=== PATIENT | female | born 1945 | race Caucasian/White ===

== ENCOUNTER 2016-09-08 17:54 | Emergency (ER) | payer MEDICARE, BC | END 2016-09-08 21:50 | disposition home or self-care (01) | LOC: D.ER 17:54 | DX: S39.012A Strain of muscle, fascia and tendon of lower back, initial encounter (principal); W01.0XXA Fall on same level from slipping, tripping and stumbling without subsequent striking against object, initial encounter; R07.81 Pleurodynia ==

== ENCOUNTER 2019-02-20 21:08 | Inpatient (IN) | payer MEDICARE, BC ==
--- NOTE | 2019-02-20 21:36 | NUR ---
PT IN PER EMS WITH C/O NOT FEELING RIGHT, DENIES PAIN AT THIS TIME, STATES SHE DOSEN'T FEEL CLEAR HEADED. STATES SHE HAS SOME CONSTIPATION X 2 DAYS. GLOBAL LOGISTICS ANALYST FIRM AND EQUAL, ANSWERS QUESTIONS APPROPRIATELY.
[2019-02-20 21:58] VITALS: BP 176/72
[2019-02-20 21:58] LABS: BASOPHILS 0.2 % (0-2); EOSINOPHILS 1.7 % (0-7); HEMOGLOBIN 12.9 g/dL (12-16); LYMPHOCYTES 38.6 % (15-50); MCH 33.2 pg (26.0-34.0); MCHC 34.9 g/dL (31.0-37.0); MCV 95.1 fL (80.0-100.0); MEAN PLATELET VOLUME 10.2 fL (7.4-10.4); MONOCYTES 11.3 % (2-11); NEUTROPHILS 47.2 % (40-80); PLATELET COUNT 148 10x3/uL (130-400); RBC 3.89 10x6/uL (4.00-5.40); RDW 13.5 % (11.5-14.5); WBC 5.9 10x3/uL (4.8-10.8)
[2019-02-20 22:08] LABS: ALBUMIN 3.6 g/dL (3.4-5.0); ANION GAP 11.7 mmol/L (8-16); BILIRUBIN - TOTAL 0.64 mg/dL (0.2-1.3); CALCIUM 9.1 mg/dL (8.5-10.1); CARBON DIOXIDE 29.2 mmol/L (21.0-32.0); CREATININE - SERUM 1.1 mg/dL (0.6-1.3); POTASSIUM - SERUM 3.9 mmol/L (3.5-5.1); PROTEIN - SERUM 6.3 g/dL (6.4-8.2)
[2019-02-20 22:16] VITALS: BP 184/69
--- NOTE | 2019-02-20 22:16 | NUR ---
pt from ct via wheelchair, family at bedside.
[2019-02-20 22:24] LABS: APPEARANCE CLEAR (CLEAR); BILIRUBIN NEGATIVE (NEGATIVE); COLOR YELLOW (YELLOW); GLUCOSE NEGATIVE (NEGATIVE); KETONE NEGATIVE (NEGATIVE); NITRITE NEGATIVE (NEGATIVE); PROTEIN NEGATIVE (NEGATIVE); SPECIFIC GRAVITY 1.015 (1.005-1.020); UROBILINOGEN NORMAL (NORMAL)
[2019-02-20 23:19] LABS: UDS - AMPHET NEGATIVE QUAL (NEGATIVE); UDS - BARB NEGATIVE QUAL (NEGATIVE); UDS - BENZO NEGATIVE QUAL (NEGATIVE); UDS - COCAINE NEGATIVE QUAL (NEGATIVE); UDS - OPIATE NEGATIVE QUAL (NEGATIVE); UDS - PCP NEGATIVE QUAL (NEGATIVE); UDS - THC NEGATIVE QUAL (NEGATIVE)
[2019-02-20 23:46] VITALS: BP 168/79
[2019-02-21] MEDS ORDERED: ALENDRONATE SOD40 MG PO (00:59)
[2019-02-21] MEDS ORDERED: METHOTREXATE2.5 MG PO (00:59)
[2019-02-21] MEDS ORDERED: FOLIC ACID1 MG PO (01:00)
[2019-02-21] MEDS ORDERED: NEURONTIN 300300 MG PO (01:00)
[2019-02-21 01:03] VITALS: BP 156/87; BMI 22.0
[2019-02-21 01:37] LABS: CREATINE KINASE 74 UL (21-215); TROPONIN-I < 0.017 ng/mL (0.000-0.060)
[2019-02-21 04:00] VITALS: BP 176/80
[2019-02-21 04:33] LABS: BASOPHILS 0.4 % (0-2); HEMATOCRIT 34.6 % (36.0-48.0); HEMOGLOBIN 11.9 g/dL (12-16); IMMATURE GRANULOCYTES 0.7 % (0-5); LYMPHOCYTES 41.7 % (15-50); MCH 32.7 pg (26.0-34.0); MCHC 34.4 g/dL (31.0-37.0); MCV 95.1 fL (80.0-100.0); MONOCYTES 13.3 % (2-11); NEUTROPHILS 41.9 % (40-80); PLATELET COUNT 139 10x3/uL (130-400); RBC 3.64 10x6/uL (4.00-5.40); RDW 13.5 % (11.5-14.5); WBC 5.5 10x3/uL (4.8-10.8)
[2019-02-21 05:05] LABS: ALBUMIN 3.2 g/dL (3.4-5.0); ALKALINE PHOSPHATASE 98 U/L (46-116); ALT (SGPT) 29 U/L (10-68); BILIRUBIN - TOTAL 0.74 mg/dL (0.2-1.3); CALC OSMOLALITY 286 mosm/kg (275-300); CALCIUM 8.6 mg/dL (8.5-10.1); CARBON DIOXIDE 29.7 mmol/L (21.0-32.0); CHLORIDE - SERUM 107 mmol/L (98-107); CKMB 0.8 U/L (0.0-3.6); CREATINE KINASE 61 UL (21-215); GLUCOSE 85 mg/dL (74-106); MAGNESIUM - SERUM 1.8 mg/dL (1.8-2.4); PHOSPHOROUS 3.5 mg/dL (2.5-4.9); POTASSIUM - SERUM 3.5 mmol/L (3.5-5.1); PROTEIN - SERUM 5.5 g/dL (6.4-8.2); SODIUM 143 mmol/L (136-145); TROPONIN-I < 0.017 ng/mL (0.000-0.060); UREA NITROGEN 22 mg/dL (7-18); eGFR NON AFRICAN AMERICAN 57 mL/min (90-120)
--- NOTE | 2019-02-21 07:30 | NUR ---
A/A/OX4. DENIES ANY PAIN OR DISCOMFORT AND VOICES NO REQUESTS AT PRESENT TIME. ASSESSMENT COMPLETED AND WILL CONTINUE POC. BED LOW POSITION AND CALL LIGHT IN REACH. AT BEDSIDE.
[2019-02-21 07:40] VITALS: BP 155/68
[2019-02-21 10:36] LABS: CKMB 0.7 U/L (0.0-3.6); CREATINE KINASE 57 UL (21-215)
[2019-02-21 10:37] LABS: TROPONIN-I < 0.017 ng/mL (0.000-0.060)
--- NOTE | 2019-02-21 11:46 | NUR ---
I have reviewed this patient and I concur with the Shift Assessment completed by the Licensed Practical Nurse today this shift.
[2019-02-21 12:50] VITALS: BP 143/64
[2019-02-21 13:24] VITALS: BMI 21.9
[2019-02-21 15:11] VITALS: BP 128/54
--- NOTE | 2019-02-21 18:00 | NUR ---
PT DECLINE OFFER OF SCDS DUE TO UP TO BATHROOM AND AROUND ROOM AD FRANCINE.
--- NOTE | 2019-02-21 19:50 | NUR ---
PT IN BED. SPOUSE AT BEDSIDE. PT DENIES NEEDS AT THIS TIME.
[2019-02-21 20:00] VITALS: BP 144/82
[2019-02-22] VITALS: BP 134/65
[2019-02-22 04:00] VITALS: BP 153/66
[2019-02-22 05:21] LABS: BASOPHILS 0.2 % (0-2); EOSINOPHILS 3.1 % (0-7); HEMATOCRIT 35.6 % (36.0-48.0); HEMOGLOBIN 12.2 g/dL (12-16); IMMATURE GRANULOCYTES 0.9 % (0-5); LYMPHOCYTES 39.5 % (15-50); MCH 32.9 pg (26.0-34.0); MCHC 34.3 g/dL (31.0-37.0); MEAN PLATELET VOLUME 10.5 fL (7.4-10.4); MONOCYTES 12.2 % (2-11); NEUTROPHILS 44.1 % (40-80); PLATELET COUNT 115 10x3/uL (130-400); RBC 3.71 10x6/uL (4.00-5.40); RDW 13.8 % (11.5-14.5); WBC 5.7 10x3/uL (4.8-10.8)
[2019-02-22 05:33] LABS: ANION GAP 10.8 mmol/L (8-16); CALCIUM 8.4 mg/dL (8.5-10.1); CARBON DIOXIDE 26.2 mmol/L (21.0-32.0); MAGNESIUM - SERUM 1.8 mg/dL (1.8-2.4); PHOSPHOROUS 3.1 mg/dL (2.5-4.9)
--- NOTE | 2019-02-22 07:30 | NUR ---
A/A/OX4. DENIES ANY PAIN OR DISCOMFORT AND VOICES NO REQUESTS. ASSESSMENT COMPLETED AND WILL CONTINUE POC. IV PATENT TO LEFT FOREARM WITH REDNESS OR EDEMA NOTED AT SITE. AT BEDSIDE. CALL LIGHT IN REACH.
[2019-02-22 08:37] VITALS: BP 133/56
[2019-02-22 12:08] VITALS: BP 171/66
--- NOTE | 2019-02-22 12:41 | NUR ---
I have reviewed this patient and I concur with the Shift Assessment completed by the Licensed Practical Nurse today this shift.
[2019-02-22 18:59] LABS: ERYTHROCYTE SEDIMENTATION RATE 2 mm/hr (0-30)
--- NOTE | 2019-02-22 19:48 | NUR ---
EVENING ROUNDS COMPLETED. REPORT RECEIVED. PT SITTING UP IN BED WITH EYES OPEN, RR EVEN AND UNLABORED. BED IN LOW POSITION. 70 NORMAL SINUS ON TELEMETRY. INTRODUCED SELF TO PT. PT DENIES FURTHER NEEDS AT THIS TIME. LFA INFUSING NS ORDERED. NO S/S OF DISTRESS NOTED. CALL LIGHT IN REACH. WILL CTM.
[2019-02-22 20:00] VITALS: BP 159/65
[2019-02-23] VITALS: BP 137/57
--- NOTE | 2019-02-23 03:22 | NUR ---
I have reviewed this patient and I concur with the Shift Assessment completed by the Licensed Practical Nurse today this shift.
[2019-02-23 04:00] VITALS: BP 150/69
[2019-02-23 05:33] LABS: BASOPHILS 0.4 % (0-2); EOSINOPHILS 3.6 % (0-7); HEMATOCRIT 32.6 % (36.0-48.0); IMMATURE GRANULOCYTES 0.6 % (0-5); LYMPHOCYTES 34.7 % (15-50); MCH 32.6 pg (26.0-34.0); MCHC 33.7 g/dL (31.0-37.0); MCV 96.7 fL (80.0-100.0); MEAN PLATELET VOLUME 11.1 fL (7.4-10.4); MONOCYTES 14.6 % (2-11); NEUTROPHILS 46.1 % (40-80); RBC 3.37 10x6/uL (4.00-5.40); WBC 4.8 10x3/uL (4.8-10.8)
[2019-02-23 05:39] LABS: PLATELET COUNT 102 10x3/uL (130-400)
[2019-02-23 05:50] LABS: CALCIUM 8.5 mg/dL (8.5-10.1); CARBON DIOXIDE 25.8 mmol/L (21.0-32.0); MAGNESIUM - SERUM 1.7 mg/dL (1.8-2.4); POTASSIUM - SERUM 3.8 mmol/L (3.5-5.1)
--- NOTE | 2019-02-23 06:25 | NUR ---
PT SITTING UP IN BED WITH EYES OPEN, RR EVEN AND UNLABORED. PT ANSWERING QUESTIONS APPROPRIATELY. SISTER AT BEDSIDE. NO S/S OF DISTRESS NOTED. CALL LIGHT IN REACH. WILL CTM.
--- NOTE | 2019-02-23 07:00 | NUR ---
RECEIVED REPORT. ASSUMED CARE OF PATIENT. CALL LIGHT WITHIN REACH. PATIENTS SISTER AT BEDSIDE. PATIENT IS ALERT. PATIENT IS DISORIENTED TO YEAR. GAVE ME WRONG BIRTHYEAR AND WRONG CURRENT YEAR. PATIENT ABLE TO TELL ME WHERE SHE IS, WHICH HOSPITAL, WHO THE PRESIDENT IS BUT COULD NOT GET ANY DATES CORRECT. PATIENT IS PLEASANT. NO DISTRESS.
[2019-02-23 08:13] VITALS: BP 145/63
--- NOTE | 2019-02-23 10:15 | NUR ---
ASSISTED PATIENT TO AND FROM RESTROOM. NO DISTRESS. CALL LIGHT PLACED WITHIN REACH. FAMILY AT BEDSIDE. DENIES NEEDS.
[2019-02-23 11:48] LABS: % SATURATION 52 % (15-55); IRON 105 ug/dl (35-150); TOTAL IRON BIND CAPACITY 199 ug/dl (260-445); UNSAT IRON BIND CAPACITY 94 ug/dl (150-375)
[2019-02-23 13:18] VITALS: BP 137/60
--- NOTE | 2019-02-23 14:23 | NUR ---
PATIENT OOB WITH PHYSICAL THERAPY FOR EVALUATION. NO DISTRESS. AMBULATING WELL.
[2019-02-23 15:08] LABS: EBV - EARLY ANTIGEN AB IGG <9.0 U/mL (0.0-8.9); EBV - NUCLEAR ANTIGEN AB IGG <18.0 U/mL (0.0-17.9); EBV VIRAL CAPSID AB IGM <36.0 U/mL (0.0-35.9)
--- NOTE | 2019-02-23 15:45 | NUR ---
PATIENT LEFT UNIT VIA WHEELCHAIR FOR MRI.
[2019-02-23 17:19] VITALS: BP 164/63
--- NOTE | 2019-02-23 18:34 | NUR ---
RESTING WELL IN BED WITH EYES CLOSED. FAMILY AT BEDSIDE. CALL LIGHT WITHIN REACH. NO DISTRESS. DENIES NEEDS AT THIS TIME.
[2019-02-23 20:00] VITALS: BP 150/76
--- NOTE | 2019-02-23 20:50 | NUR ---
DC'D INFILTRATED LFA IV WITH CATHATER TIP IN PLACE. ARM SWOLLEN WITH FLUID. APPLIED WARM COMPRESS. PT DENIES PAIN. RE-ESTABLISHED 20G IV TO RIGHT FOREARM. IV PATENT NS RUNNING AT 75ML/HR PER ORDER. PT RR EVEN AND UNLABORED VITALS STABLE AT THIS TIME. PT SLOW TO SPEECH RESPONSE BUT ANSWERS APPROPRIATLY. FAMILY AT BEDSIDE. BED LOW CALL LIGHT WITHIN REACH. WILL CONTINUE TO MONIITOR.
--- NOTE | 2019-02-23 23:32 | NUR ---
PT RESTING IN BED WITH EYES CLOSED. RR EVEN AND UNLABORED. FAMILY AT BEDSIDE. NO S/S OF DISTRESS AT THIS TIME. BED LOW CALL LIGHT WITHIN REACH. WILL CONTINUE TO MONITOR.
[2019-02-24] VITALS: BP 158/64
[2019-02-24 04:00] VITALS: BP 156/73
--- NOTE | 2019-02-24 05:04 | NUR ---
I have reviewed this patient and I concur with the Shift Assessment completed by the Licensed Practical Nurse today this shift.
[2019-02-24 05:29] LABS: ANION GAP 11.7 mmol/L (8-16); CALCIUM 8.5 mg/dL (8.5-10.1); CARBON DIOXIDE 26.4 mmol/L (21.0-32.0); MAGNESIUM - SERUM 1.7 mg/dL (1.8-2.4); PHOSPHOROUS 3.1 mg/dL (2.5-4.9); POTASSIUM - SERUM 4.1 mmol/L (3.5-5.1)
--- NOTE | 2019-02-24 07:00 | NUR ---
RECEIVED REPORT. ASSUMED CARE OF PATIENT. RESTING WITH EYES CLOSED. RESP EVEN AND UNLABORED. FAMILY AT BEDSIDE WITH EYES CLOSED. CALL LIGHT IN PATIETNT HAND. NO DISTRESS.
[2019-02-24 08:08] LABS: BASOPHILS 0.4 % (0-2); EOSINOPHILS 4.3 % (0-7); HEMATOCRIT 35.6 % (36.0-48.0); HEMOGLOBIN 12.3 g/dL (12-16); IMMATURE GRANULOCYTES 0.2 % (0-5); MCHC 34.6 g/dL (31.0-37.0); MCV 95.4 fL (80.0-100.0); MEAN PLATELET VOLUME 10.1 fL (7.4-10.4); MONOCYTES 9.5 % (2-11); NEUTROPHILS 57.6 % (40-80); PLATELET COUNT 109 10x3/uL (130-400); RBC 3.73 10x6/uL (4.00-5.40); RDW 13.8 % (11.5-14.5); WBC 4.6 10x3/uL (4.8-10.8)
[2019-02-24 08:51] VITALS: BP 141/77
--- NOTE | 2019-02-24 09:57 | NUR ---
20 GAUGE IV TO RIGHT FOREARM NOT ABLE TO BE FLUSHED AFTER SHOWER AT THIS TIME. 20 GAUGE IV CATHETER REMOVED FROM RIGHT FOREARM, CATHETER TIP INTACT. NO BLEEDING FROM SITE. 2X2 GAUZE APPLIED AND SECURED WITH BANDAID. 20 GAUGE IV PLACED TO RIGHT HAND AT THIS TIME X 1 STICK. GOOD BLOOD RETURN, EASY FLUSH. TOLERATED IV PLACEMENT WELL. TAPED, DATED AND SECURED. IV FLUIDS INFUSING AT THIS TIME. NO DISTRESS.
[2019-02-24 12:21] VITALS: BP 121/61
--- NOTE | 2019-02-24 14:30 | NUR ---
OOB WITH PHYSICAL THERAPY AMBULATING AROUND UNIT. TOLERATES THERAPY WELL. AMBULATES WITH MINIMAL ASSISTANCE. NO DISTRESS.
[2019-02-24 16:57] VITALS: BP 146/57
--- NOTE | 2019-02-24 18:49 | NUR ---
RESTING IN BED WITH ATTENTION TOWARD TELEVISION. CALL LIGHT WITHIN REACH. NO DISTRESS. DENIES NEEDS.
--- NOTE | 2019-02-24 19:49 | NUR ---
EVENING ROUNDS COMPLETED. REPORT RECEIVED. PT SITTING UP IN BED WITH EYES OPEN, RR EVEN AND UNLABORED. BED IN LOW POSITION. NO S/S OF DISTRESS NOTED. AT BEDSIDE. PT REQUESTED TO HAVE PIV REMOVED. STATED IT WAS A STANDARD FACILITY POLICY TO KEEP PIV IN PLACE UNTIL DISCHARGE FROM FLOOR. PT STATES UNDERSTANDING. PT DENIES FURTHER NEEDS AT THIS TIME. CALL LIGHT IN REACH. WILL CTM.
[2019-02-24 20:15] VITALS: BP 156/65
[2019-02-25] VITALS: BP 169/70
[2019-02-25 05:22] LABS: BASOPHILS 0.7 % (0-2); EOSINOPHILS 3.6 % (0-7); HEMOGLOBIN 10.8 g/dL (12-16); IMMATURE GRANULOCYTES 0.2 % (0-5); LYMPHOCYTES 26.1 % (15-50); MCH 32.2 pg (26.0-34.0); MCHC 33.8 g/dL (31.0-37.0); MCV 95.5 fL (80.0-100.0); MEAN PLATELET VOLUME 10.4 fL (7.4-10.4); MONOCYTES 12.5 % (2-11); NEUTROPHILS 56.9 % (40-80); PLATELET COUNT 110 10x3/uL (130-400); RBC 3.35 10x6/uL (4.00-5.40); RDW 13.7 % (11.5-14.5)
[2019-02-25 05:34] LABS: WBC 5.9 10x3/uL (4.8-10.8)
[2019-02-25 06:05] LABS: ANION GAP 8.5 mmol/L (8-16); CARBON DIOXIDE 29.5 mmol/L (21.0-32.0); CREATININE - SERUM 0.9 mg/dL (0.6-1.3); PHOSPHOROUS 2.6 mg/dL (2.5-4.9)
--- NOTE | 2019-02-25 06:23 | NUR ---
3.0 SERUM POTASSIUM TREATED ORDERED.
[2019-02-25 07:53] VITALS: BP 159/68
--- NOTE | 2019-02-25 09:00 | NUR ---
PT SITTING UP ON SIDE OF BED WITH FAMILY AT BEDSIDE. NO ACUTE DISTRESS NOTED. PT ASSISTED TO SHOWER FOR PERSONAL CARE. PT REQUEST IV TO RIGHT HAND BE SALINE LOC AND LEFT THEY STATE MD HAD INFORMED THEM THAT IT COULD BE SALINE LOC'D. IV SALINE LOC'D AT THIS TIME. PT AND FAMILY STATE PT IS EATING AND DRINKING ADEQUATELY AND THEY FEEL THAT FLUIDS ARE NO LONGER NEEDED. DENIES PAIN. DENIES FURTHER NEEDS AT THIS TIME. CL WITHIN REACH. ENCOURAGED TO CALL WITH NEEDS. CONTINUE POC
--- NOTE | 2019-02-25 09:50 | EC ---
PATIENT:PAMELA BOOKER DATE OF SERVICE: 02/20/19 SEX: F MEDICAL RECORD: [id number] DATE OF : 43 LOCATION:D.M2 D.210 AGE OF PATIENT: 73 ADMISSION DATE: 02/20/19 REFERRING PHYSICIAN: INTERPRETING PHYSICIAN: BHARTI ZENG MD ECHOCARDIOGRAM REPORT ECHO CHARGES 4 ECHO COMPLETE Date: 02/21/19 CLINICAL DIAGNOSIS: BRADYCARDIA HXOF CAD/HTN/PTCA ECHOCARDIOGRAPHIC MEASUREMENTS (adult normal given) AC root (d.<3.7cm) 3.0 cm LV Septum d (<1.2 cm> 1. cm Valve Excursion 1.4 cm LV Septum (systole) 1.9 cm Left Atria (s.<4.0cm> 3.9 cm LVPW d(<1.2cm) 1.7 cm RV (d.<2.3cm) 4.5 cm LVPW (sytole) 2.0 cm LV diastole(<5.6CM) 4.0 cm MV E-F(>70mm/sec) cm LV systole 2.8 cm LVOT Diameter 1.8 cm MV exc.(>10mm) cm Est.ejection fraction (50-75%) % DOPPLER: LVIT cm/sec A 71.0 cm/sec E 59.0 cm/sec LA cm/sec RVSP 37 mmHg LVOT 133 cm/sec AOP1/2T 684 m/s Asc. Ao 190 cm/sec RVOT 65 cm/sec RA cm/sec PA 163 cm/sec AV Gradient Peak 14.39mmHg AV Mean 8.46 mmHg AV Area 1.8 cm MV Gradient Peak 4.82 mmHg MV Mean 0.99 mmHg MV Area cm COMMENTS: Physical Medicine Teacher: Kallie ROME [employer] Architect: 1 Dr. Zeng TAPE# PACS Pericardial Effusion N DATE OF SERVICE: 02/21/2019 ECHOCARDIOGRAM DATE OF SERVICE: 02/21/2019 FINDINGS: 1. Left ventricular chamber size is within normal limits. Left ventricular systolic function is normal. Overall ejection fraction estimated at 60%. 2. Left atrium, right atrium, and right ventricular chamber sizes are within ECHOCARDIOGRAM REPORT [id number] PAMELA BOOKER normal limits. 3. Valvular structures have normal structure and motion. 4. Doppler interrogation reveals mild aortic insufficiency, mild mitral regurgitation, no other valvular insufficiency or stenosis. Pulmonary systolic pressure is estimated at 37 mmHg. 5. No evidence of pericardial effusion or left ventricular thrombus. TRANSINT:[id number] Voice Confirmation ID: [id number] DOCUMENT ID: [id number] BHARTI ZENG MD at 0950 CC: [id number] DICTATION DATE: 02/21/19 1259 WOOL AND PELT GRADER: 02/21/[address] [facility] [address] [place] [address]
[2019-02-25 10:10] LABS: ANA REFLEX - DIRECT Negative (Negative)
--- NOTE | 2019-02-25 11:41 | NUR ---
PT SITTING UP ON SIDE OF BED. NO ACUTE DISTRESS NOTED AT THIS TIME. DENIES NEEDS AT THIS TIME. CL WITHIN REACH. WILL CONTINUE TO MONITOR.
--- NOTE | 2019-02-25 12:10 | MORECARE ---
CASE MANAGEMENT DISCHARGE SUMMARY PATIENT: PAMELA BOOKER UNIT: [id number] ADM DATE: 02/20/19 AGE: 73 : 44 SEX: F ROOM/BED: D.2102 AUTHOR: KATHRYN COTTO PHYSICIAN: REFERRING PHYSICIAN: RANDAL ROY MD DATE OF SERVICE: 02/25/19 Discharge Plan Patient Name: PAMELA BOOKER Facility: [facility]:[place] : 1945 Planned Disposition: Home Anticipated Discharge Date: 02/25/19 Discharge Date: Expected LOS: 5 Initial Reviewer: [email or web address] Initial Review Date: 02/25/2019 Generated: 02/25/19 1:10 pm Coverage Notice Reviewer: [id number] - Rishi Borges Notice Issued Date-Time: 02/25/2019 12:00 Notice Type: IM Discharge Notice Notice Delivered To: Patient Relationship to Patient: Hyperbaric Nurse Name: Delivery Method: HAND - Hand Delivered Tracey Days: Prior Verbal Notification: Recipient Understood Notice: Yes Recipient Signature: Yes Med Rec Note Co-signed by Attending: Coverage Notice Comment: Patient Name: PAMELA BOOKER Page [id number] at 1210 All edits/amendments must be made on the electronic document DICTATION DATE: 02/25/191208 PAPETERIE TABLE ASSEMBLER: SAMY 02/25/19 120 RPT#: [id number] DC DATE: STATUS: ADM IN [facility] [address] [place] [address] END OF REPORT
--- NOTE | 2019-02-25 12:17 | MORECARE ---
CASE MANAGEMENT DISCHARGE SUMMARY PATIENT: PAMELA BOOKER UNIT: [id number] ADM DATE: 02/20/19 AGE: 73 : 44 SEX: F ROOM/BED: D.2102 AUTHOR: YADIEL,DOC PHYSICIAN: REFERRING PHYSICIAN: RANDAL ROY MD DATE OF SERVICE: 02/25/19 Discharge Plan Patient Name: PAMELA BOOKER Facility: [facility]:[place] : 1945 Planned Disposition: Home Anticipated Discharge Date: 02/25/19 Discharge Date: Expected LOS: 5 Initial Reviewer: [id number] Initial Review Date: 02/25/2019 Generated: 02/25/19 1:17 pm Comments DCP- Discharge Planning Updated by [id number]: Rishi Borges on 02/25/19 11:[address] Patient Name: PAMELA BOOKER Admission Status: ER Accout number: [id number] Admission Date: 02-20-2019 : 1945 Admission Diagnosis:ALTERED MENTAL STATUS, UNSPECIFIED Attending: RANDAL ROY Current LOS: 5 Anticipated DC Date: 02-25-2019 Planned Disposition: Home Primary Insurance: MEDICARE A & B Discharge Planning Comments: CM RECEIVED ORDER FOR INPATIENT REHAB PRESCREENING. CM MET WITH PT IN ROOM TO DISCUSS DISCHARGE PLANNING AND NEEDS. PT REPORTS LIVING AT HOME INDEPENDENTLY WITH A FRIEND. PT REPORTS HAVING ALL NEEDED MEDICAL EQUIPMENT AT HOME LEFT FROM HER MOTHER. PT HAS ROLLATOR WALKER, CANE AND BEDSIDE COMMODE TO USE IF SHE NEEDS IT. PT'S PREFERRED MEDICAL EQUIPMENT PROVIDER IS [employer]. PT HAS NO OUTSIDE SERVICES ASSISTING IN THE HOME. CM DISCUSSED AVAILABILITY OF HOME HEALTH, REHAB SERVICES AND MEDICAL EQUIPMENT. PT DENIES DISCHARGE NEEDS, STATES SHE IS DOING WELL AND CAN GO HOME AT DISCHARGE. PT REPORTS HER FRIEND OR FAMILY WILL PICK HER UP FOR DISCHARGE HOME. IMPORTANT MESSAGE FROM MEDICARE PROVIDED AND EXPLAINED. CM NOTIFIED [facility] OF INPATIENT REHAB THAT PT DECLINES REHAB SERVICES. PT DECLINES REHAB SERVICES WELL HOME HEALTH. PT PLANS TO DISCHARGE HOME WHERE SHE LIVES WITH A FRIEND. PT REPORTS HAVING SOMEONE FOR TRANSPORT HOME AT DISCHARGE. CM TO FOLLOW AND ASSIST IF NEEDED. Motion Pictures Cartoonist: Rishi Borges DCPIA - Discharge Planning Initial Assessment Updated by [id number]: Rishi Borges on 02/25/19 12:11 pm * Is the patient Alert and Oriented? Yes * How many steps to enter\exit or inside your home? NONE * PCP DR. HENSON * Pharmacy [facility] * Preadmission Environment Home with Family * ADLs Independent * Equipment Bedside Commode Cane Rolling Walker * Other Equipment WALKER WITH BRAKES AND SEAT [facility] - MEDICAL EQUIPMENT PROVIDER * List name and contact numbers for known caregivers / representatives who currently or will assist patient after discharge: BUTCH MARVIN, SISTER, * Verbal permission to speak to the caregivers and representatives has been obtained from the patient. N/A * Community resources currently utilized None * Please name any agencies selected above. NONE * Additional services required to return to the preadmission environment? No * Can the patient safely return to the preadmission environment? Yes * Has this patient been hospitalized within the prior 30 days at any hospital? No Coverage Notice Reviewer: [id number] - Rishi Borges Notice Issued Date-Time: 02/25/2019 12:00 Notice Type: IM Discharge Notice Notice Delivered To: Patient Relationship to Patient: Ammonia Solution Preparer Name: Delivery Method: HAND - Hand Delivered Tracey Days: Prior Verbal Notification: Recipient Understood Notice: Yes Recipient Signature: Yes Med Rec Note Co-signed by Attending: Coverage Notice Comment: Last DP export: 02/25/19 11:10 am Patient Name: PAMELA BOOKER Page [phone] at 1217 All edits/amendments must be made on the electronic document DICTATION DATE: 02/25/191216 CROSSING GATEMAN: SAMY 02/25/19 1217 RPT#: [id number] DC DATE: STATUS: ADM IN [facility] [address] [place] [address] END OF REPORT
[2019-02-25 12:20] VITALS: BP 154/59
[2019-02-25 17:05] VITALS: BP 152/88
[2019-02-25 20:00] VITALS: BP 140/67
--- NOTE | 2019-02-25 20:27 | NUR ---
RECIEVED BEDSIDE REPORT. ROUNDS COMPLETED. VSS, AAOX3, NEURO-CHECKS COMPLETED. FAMILY AT BEDSIDE. PIV R.HAND SL. PT STATES SHE DOES NOT WANT ANY FLUIDS INFUSING THROUGH HER IV AT THIS TIME. GABAPENTIN GIVEN. ON TELE. 65 SINUS. WILL CPOC. CL WITHIN REACH, BED IN LOW, SR UP X2.
[2019-02-26] VITALS: BP 129/60
[2019-02-26 03:08] LABS: RMSF IGM 0.29 index (0.00-0.89)
[2019-02-26 04:00] VITALS: BP 134/58
[2019-02-26 06:59] LABS: BASOPHILS 0.7 % (0-2); EOSINOPHILS 3.5 % (0-7); HEMOGLOBIN 12.6 g/dL (12-16); IMMATURE GRANULOCYTES 0.2 % (0-5); LYMPHOCYTES 31.6 % (15-50); MCH 33.6 pg (26.0-34.0); MEAN PLATELET VOLUME 10.7 fL (7.4-10.4); MONOCYTES 9.6 % (2-11); NEUTROPHILS 54.4 % (40-80); RBC 3.75 10x6/uL (4.00-5.40); RDW 13.8 % (11.5-14.5); WBC 5.9 10x3/uL (4.8-10.8)
[2019-02-26 07:00] LABS: PLATELET COUNT 138 10x3/uL (130-400)
[2019-02-26 07:10] LABS: CALCIUM 8.9 mg/dL (8.5-10.1); CARBON DIOXIDE 27.7 mmol/L (21.0-32.0); CREATININE - SERUM 1.1 mg/dL (0.6-1.3); MAGNESIUM - SERUM 1.8 mg/dL (1.8-2.4); POTASSIUM - SERUM 3.7 mmol/L (3.5-5.1)
[2019-02-26 08:06] VITALS: BP 173/63
--- NOTE | 2019-02-26 09:32 | MORECARE ---
CASE MANAGEMENT DISCHARGE SUMMARY PATIENT: PAMELA BOOKER UNIT: [id number] ADM DATE: 02/20/19 AGE: 73 : 44 SEX: F ROOM/BED: D.2102 AUTHOR: YADIEL,DOC PHYSICIAN: REFERRING PHYSICIAN: RANDAL ROY MD DATE OF SERVICE: 02/26/19 Discharge Plan Patient Name: PAMELA BOOKER Facility: [facility]:[place] : 1945 Planned Disposition: Home with Home Health Anticipated Discharge Date: 02/26/19 Discharge Date: Expected LOS: 6 Initial Reviewer: JOSE Initial Review Date: 02/25/2019 Generated: 02/26/19 10:31 am DCP- Discharge Planning Updated by [email or web address]: Rishi Borges on 02/25/19 11:[address] Patient Name: PAMELA BOOKER Admission Status: ER Accout number: [id number] Admission Date: 02-20-2019 : 1945 Admission Diagnosis:ALTERED MENTAL STATUS, UNSPECIFIED Attending: RANDAL ROY Current LOS: 5 Anticipated DC Date: 02-25-2019 Planned Disposition: Home Primary Insurance: MEDICARE A & B Discharge Planning Comments: CM RECEIVED ORDER FOR INPATIENT REHAB PRESCREENING. CM MET WITH PT IN ROOM TO DISCUSS DISCHARGE PLANNING AND NEEDS. PT REPORTS LIVING AT HOME INDEPENDENTLY WITH A FRIEND. PT REPORTS HAVING ALL NEEDED MEDICAL EQUIPMENT AT HOME LEFT FROM HER MOTHER. PT HAS ROLLATOR WALKER, CANE AND BEDSIDE COMMODE TO USE IF SHE NEEDS IT. PT'S PREFERRED MEDICAL EQUIPMENT PROVIDER IS [employer]. PT HAS NO OUTSIDE SERVICES ASSISTING IN THE HOME. CM DISCUSSED AVAILABILITY OF HOME HEALTH, REHAB SERVICES AND MEDICAL EQUIPMENT. PT DENIES DISCHARGE NEEDS, STATES SHE IS DOING WELL AND CAN GO HOME AT DISCHARGE. PT REPORTS HER FRIEND OR FAMILY WILL PICK HER UP FOR DISCHARGE HOME. IMPORTANT MESSAGE FROM MEDICARE PROVIDED AND EXPLAINED. CM NOTIFIED [facility] OF INPATIENT REHAB THAT PT DECLINES REHAB SERVICES. PT DECLINES REHAB SERVICES WELL HOME HEALTH. PT PLANS TO DISCHARGE HOME WHERE SHE LIVES WITH A FRIEND. PT REPORTS HAVING SOMEONE FOR TRANSPORT HOME AT DISCHARGE. CM TO FOLLOW AND ASSIST IF NEEDED. Inventory Control Specialist: Rishi Borges DCPIA - Discharge Planning Initial Assessment Updated by [email or web address]: Rishi Borges on 02/25/19 12:11 pm * Is the patient Alert and Oriented? Yes * How many steps to enter\exit or inside your home? NONE * PCP DR. HENSON * Pharmacy [facility] * Preadmission Environment Home with Family * ADLs Independent * Equipment Bedside Commode Cane Rolling Walker * Other Equipment WALKER WITH BRAKES AND SEAT [facility] - MEDICAL EQUIPMENT PROVIDER * List name and contact numbers for known caregivers / representatives who currently or will assist patient after discharge: BUTCH MARVIN, SISTER, * Verbal permission to speak to the caregivers and representatives has been obtained from the patient. N/A * Community resources currently utilized None * Please name any agencies selected above. NONE * Additional services required to return to the preadmission environment? No * Can the patient safely return to the preadmission environment? Yes * Has this patient been hospitalized within the prior 30 days at any hospital? No External Providers [facility] Next Contact Date: 02/26/2019 Service Request Date: Service Type: Resolution: Reviewer: Comments: Coverage Notice Reviewer: [id number] - Rishi Borges Notice Issued Date-Time: 02/25/2019 12:00 Notice Type: IM Discharge Notice Notice Delivered To: Patient Relationship to Patient: Supervisor Tellers Name: Delivery Method: HAND - Hand Delivered Tracey Days: Prior Verbal Notification: Recipient Understood Notice: Yes Recipient Signature: Yes Med Rec Note Co-signed by Attending: Coverage Notice Comment: Last DP export: 02/25/19 11:17 am Patient Name: PAMELA BOOKER Page [phone] at 0932 All edits/amendments must be made on the electronic document DICTATION DATE: 02/26/19930 METER SHOP SUPERVISOR: DM 02/26/19930 RPT#: [id number] DC DATE: STATUS: ADM IN [facility] [address] [place] [address] END OF REPORT
[2019-02-26] MEDS ORDERED: ASPIRIN325 MG PO (09:50)
[2019-02-26] MEDS ORDERED: ZOCOR20 MG PO (09:53)
--- NOTE | 2019-02-26 09:57 | MORECARE ---
CASE MANAGEMENT DISCHARGE SUMMARY PATIENT: PAMELA BOOKER UNIT: [id number] ADM DATE: 02/20/19 AGE: 73 : 44 SEX: F ROOM/BED: D.210 AUTHOR: YADIEL,DOC PHYSICIAN: REFERRING PHYSICIAN: RANDAL ROY MD DATE OF SERVICE: 02/26/19 Discharge Plan Patient Name: PAMELA BOOKER Facility: [facility]:[place] : 1945 Planned Disposition: Home with Home Health Anticipated Discharge Date: 02/26/19 Discharge Date: Expected LOS: 6 Initial Reviewer: [email or web address] Initial Review Date: 02/25/2019 Generated: 02/26/19 10:57 am Comments DCP- Discharge Planning Updated by [email or web address]: Rishi Borges on 02/26/19 8:[address] Patient Name: PAMELA BOOKER Encounter No: [id number] : 1945 Primary Insurance: MEDICARE A & B Anticipated DC Date: 02-26-2019 Planned Disposition: Home with Home Health External Planned Provider: [facility] DCP follow-up note: CM RECEIVED ORDER TO SPEAK WITH FAMILY REGARDING DISCHARGE NEEDS. CM SPOKE TO PT IN ROOM, OBTAINED PERMISSION TO SPEAK TO HER SIGNIFICANT OTHER. CM CALLED PT'S SIGNIFICANT OTHER, ZAYRA ROJAS, . ZAYRA REPORTS HE AND PT HAVE BEEN PARTNERS FOR 46 YEARS AND NEVER BOTHERED TO GET . ZAYRA REPORTS THAT HE IS RETIRED AND IS HOME ALL OF THE TIME. ZAYRA REPORTS THAT HE CAN ASSIST PT AT HOME IF NEEDED AND THAT PT'S SISTER, CECY, IS GOING TO SPEND SOME TIME WITH THEM AND WILL ALSO BE AVAILABLE TO ASSIST; ZAYRA FEELS THAT HE AND CECY WILL BE ABLE TO TAKE CARE OF PT AT HOME. ZAYRA IS CONCERNED REGARDING PT'S MENTAL STATUS, PT IS HAVING RECALL ISSUES. CM DICUSSED HOME HEALTH AND PT'S REFUSAL OF REHAB SERVICES AND HOME HEALTH. ZAYRA AGAIN REPORTS ABLITLITY TO CARE FOR PT AT HOME, BUT DOES WANT HOME HEALTH AND FEELS THAT HE CAN CONVINCE PT TO ACCEPT THE SERVICES. ZAYRA REPORTS HE AND CECY WILL BE PICKING UP PT FOR DISCHARGE FROM THE HOSPITAL. CM SPOKE TO PT IN ROOM, DISCUSSED REHAB SERVICES, HOME HEALTH SERVICES AND MEDICAL EQUIPMENT AVAILABILITY. PT REPORTS HAVING NEEDED MEDICAL EQUIPMENT, DECLINES REHAB PLACEMENT, AND WILL ACCEPT HOME HEALTH SINCE THE DOCTOR AND ZAYRA THINK IT IS NECESSARY. PT REQUESTED [facility] THEY USED THEM FOR PT'S MOTHER IN THE PAST. CHOICE SIGNED FOR [facility]. CM CALLED [facility], , SPOKE TO AASHISH, REFERRAL PROVIDED, PT PLACED ON SCHEDULE FOR TOMORROW. CM FAXED REFERRAL INFORMATION TO [facility] AT [phone]. FOR DISCHARGE, FAX DISCHARGE INFORMATION TO [facility] AT [phone]. Rishi Borges, CASE MANAGEMENT DCP- Discharge Planning Updated by [id number]: Rishi Borges on 02/25/19 11:[address] Patient Name: PAMELA BOOKER Admission Status: ER Accout number: [id number] Admission Date: 02-20-2019 : 1945 Admission Diagnosis:ALTERED MENTAL STATUS, UNSPECIFIED Attending: RANDAL ROY Current LOS: 5 Anticipated DC Date: 02-25-2019 Planned Disposition: Home Primary Insurance: MEDICARE A & B Discharge Planning Comments: CM RECEIVED ORDER FOR INPATIENT REHAB PRESCREENING. CM MET WITH PT IN ROOM TO DISCUSS DISCHARGE PLANNING AND NEEDS. PT REPORTS LIVING AT HOME INDEPENDENTLY WITH A FRIEND. PT REPORTS HAVING ALL NEEDED MEDICAL EQUIPMENT AT HOME LEFT FROM HER MOTHER. PT HAS ROLLATOR WALKER, CANE AND BEDSIDE COMMODE TO USE IF SHE NEEDS IT. PT'S PREFERRED MEDICAL EQUIPMENT PROVIDER IS [employer]. PT HAS NO OUTSIDE SERVICES ASSISTING IN THE HOME. CM DISCUSSED AVAILABILITY OF HOME HEALTH, REHAB SERVICES AND MEDICAL EQUIPMENT. PT DENIES DISCHARGE NEEDS, STATES SHE IS DOING WELL AND CAN GO HOME AT DISCHARGE. PT REPORTS HER FRIEND OR FAMILY WILL PICK HER UP FOR DISCHARGE HOME. IMPORTANT MESSAGE FROM MEDICARE PROVIDED AND EXPLAINED. CM NOTIFIED [facility] OF INPATIENT REHAB THAT PT DECLINES REHAB SERVICES. PT DECLINES REHAB SERVICES WELL HOME HEALTH. PT PLANS TO DISCHARGE HOME WHERE SHE LIVES WITH A FRIEND. PT REPORTS HAVING SOMEONE FOR TRANSPORT HOME AT DISCHARGE. CM TO FOLLOW AND ASSIST IF NEEDED. Tile Decorator: Rishi Borges DCPIA - Discharge Planning Initial Assessment Updated by [id number]: Rishi Borges on 02/25/19 12:11 pm * Is the patient Alert and Oriented? Yes * How many steps to enter\exit or inside your home? NONE * PCP DR. HENSON * Pharmacy [facility] * Preadmission Environment Home with Family * ADLs Independent * Equipment Bedside Commode Cane Rolling Walker * Other Equipment WALKER WITH BRAKES AND SEAT [facility] - MEDICAL EQUIPMENT PROVIDER * List name and contact numbers for known caregivers / representatives who currently or will assist patient after discharge: BUTCH MARVIN, , * Verbal permission to speak to the caregivers and representatives has been obtained from the patient. N/A * Community resources currently utilized None * Please name any agencies selected above. NONE * Additional services required to return to the preadmission environment? No * Can the patient safely return to the preadmission environment? Yes * Has this patient been hospitalized within the prior 30 days at any hospital? No Coverage Notice Reviewer: [id number] Borges Notice Issued Date-Time: 02/25/2019 12:00 Notice Type: IM Discharge Notice Notice Delivered To: Patient Relationship to Patient: Dietetic Technician Registered Name: Delivery Method: HAND - Hand Delivered Tracey Days: Prior Verbal Notification: Recipient Understood Notice: Yes Recipient Signature: Yes Med Rec Note Co-signed by Attending: Coverage Notice Comment: Reviewer: [id number] Borges Notice Issued Date-Time: 02/26/2019 8:15 Notice Type: IM Discharge Notice Notice Delivered To: Patient Relationship to Patient: Dietetic Technician Registered Name: Delivery Method: HAND - Hand Delivered Tracey Days: Prior Verbal Notification: Recipient Understood Notice: Yes Recipient Signature: Yes Med Rec Note Co-signed by Attending: Coverage Notice Comment: [facility] Last DP export: 02/26/19 8:31 am Patient Name: PAMELA BOOKER Page [phone] at 0957 All edits/amendments must be made on the electronic document DICTATION DATE: 02/26/19956 PLANNING MANAGER: SAMY 02/26/19956 RPT#: [id number] DC DATE: STATUS: ADM IN [facility] [address] [place] [address] END OF REPORT
--- NOTE | 2019-02-26 13:25 | MORECARE ---
CASE MANAGEMENT DISCHARGE SUMMARY PATIENT: PAMELA BOOKER UNIT: [id number] ADM DATE: 02/20/19 AGE: 73 : 44 SEX: F ROOM/BED: D.2100 AUTHOR: YADIEL,DOC PHYSICIAN: REFERRING PHYSICIAN: RANDAL ROY MD DATE OF SERVICE: 02/26/19 Discharge Plan Patient Name: PAMELA BOOKER Facility: [facility]:[place] : 1945 Planned Disposition: Home with Home Health Anticipated Discharge Date: 02/26/19 Discharge Date: Expected LOS: 6 Initial Reviewer: [id number] Initial Review Date: 02/25/2019 Generated: 02/26/19 2:25 pm Comments DCP- Discharge Planning Updated by [id number]: Rishi Borges on 02/26/19 12:[address] Patient Name: PAMELA BOOKER Encounter No: [id number] : 1945 Primary Insurance: MEDICARE A & B Anticipated DC Date: 02-26-2019 Planned Disposition: Home with Home Health External Planned Provider: [facility] DCP follow-up note: CM RECEIVED ORDER TO SPEAK WITH FAMILY REGARDING DISCHARGE NEEDS. CM SPOKE TO PT IN ROOM, OBTAINED PERMISSION TO SPEAK TO HER SIGNIFICANT OTHER. CM CALLED PT'S SIGNIFICANT OTHER, ZAYRA ROJAS, . ZAYRA REPORTS HE AND PT HAVE BEEN PARTNERS FOR 46 YEARS AND NEVER BOTHERED TO GET . ZAYRA REPORTS THAT HE IS RETIRED AND IS HOME ALL OF THE TIME. ZAYRA REPORTS THAT HE CAN ASSIST PT AT HOME IF NEEDED AND THAT PT'S SISTER, CECY, IS GOING TO SPEND SOME TIME WITH THEM AND WILL ALSO BE AVAILABLE TO ASSIST; ZAYRA FEELS THAT HE AND CECY WILL BE ABLE TO TAKE CARE OF PT AT HOME. ZAYRA IS CONCERNED REGARDING PT'S MENTAL STATUS, PT IS HAVING RECALL ISSUES. CM DICUSSED HOME HEALTH AND PT'S REFUSAL OF REHAB SERVICES AND HOME HEALTH. ZAYRA AGAIN REPORTS ABLITLITY TO CARE FOR PT AT HOME, BUT DOES WANT HOME HEALTH AND FEELS THAT HE CAN CONVINCE PT TO ACCEPT THE SERVICES. ZAYRA REPORTS HE AND CECY WILL BE PICKING UP PT FOR DISCHARGE FROM THE HOSPITAL. CM SPOKE TO PT IN ROOM, DISCUSSED REHAB SERVICES, HOME HEALTH SERVICES AND MEDICAL EQUIPMENT AVAILABILITY. PT REPORTS HAVING NEEDED MEDICAL EQUIPMENT, DECLINES REHAB PLACEMENT, AND WILL ACCEPT HOME HEALTH SINCE THE DOCTOR AND ZAYRA THINK IT IS NECESSARY. PT REQUESTED [facility] THEY USED THEM FOR PT'S MOTHER IN THE PAST. CHOICE SIGNED FOR [facility]. CM CALLED [facility], , SPOKE TO AASHISH, REFERRAL PROVIDED, PT PLACED ON SCHEDULE FOR TOMORROW. CM FAXED REFERRAL INFORMATION TO [facility] AT [phone]. FOR DISCHARGE, FAX DISCHARGE INFORMATION TO [facility] AT [phone]. Rishi Borges, CASE MANAGEMENT Appended by Rishi Borges on 02/26/2019 13:21 CDT: CM RECEIVED DISCHARGE, FAXED DISCHARGE INFORMATION TO [facility] AT [phone]. CM CALLED AND NOTIFIED AASHISH AT [facility], . Rishi Borges, CASE MANAGEMENT DCP- Discharge Planning Updated by [id number]: Rishi Borges on 02/25/19 11:[address] Patient Name: PAMELA BOOKER Admission Status: ER Accout number: [id number] Admission Date: 02-20-2019 : 1945 Admission Diagnosis:ALTERED MENTAL STATUS, UNSPECIFIED Attending: RANDAL ROY Current LOS: 5 Anticipated DC Date: 02-25-2019 Planned Disposition: Home Primary Insurance: MEDICARE A & B Discharge Planning Comments: CM RECEIVED ORDER FOR INPATIENT REHAB PRESCREENING. CM MET WITH PT IN ROOM TO DISCUSS DISCHARGE PLANNING AND NEEDS. PT REPORTS LIVING AT HOME INDEPENDENTLY WITH A FRIEND. PT REPORTS HAVING ALL NEEDED MEDICAL EQUIPMENT AT HOME LEFT FROM HER MOTHER. PT HAS ROLLATOR WALKER, CANE AND BEDSIDE COMMODE TO USE IF SHE NEEDS IT. PT'S PREFERRED MEDICAL EQUIPMENT PROVIDER IS [facility]. PT HAS NO OUTSIDE SERVICES ASSISTING IN THE HOME. CM DISCUSSED AVAILABILITY OF HOME HEALTH, REHAB SERVICES AND MEDICAL EQUIPMENT. PT DENIES DISCHARGE NEEDS, STATES SHE IS DOING WELL AND CAN GO HOME AT DISCHARGE. PT REPORTS HER FRIEND OR FAMILY WILL PICK HER UP FOR DISCHARGE HOME. IMPORTANT MESSAGE FROM MEDICARE PROVIDED AND EXPLAINED. CM NOTIFIED [facility]PATIENT RE[facility] THAT PT DECLINES REHAB SERVICES. PT DECLINES REHAB SERVICES WELL HOME HEALTH. PT PLANS TO DISCHARGE HOME WHERE SHE LIVES WITH A FRIEND. PT REPORTS HAVING SOMEONE FOR TRANSPORT HOME AT DISCHARGE. CM TO FOLLOW AND ASSIST IF NEEDED. Vice President Safety: Rishi Borges DCPIA - Discharge Planning Initial Assessment Updated by [id number]: Rishi Borges on 02/25/19 12:11 pm * Is the patient Alert and Oriented? Yes * How many steps to enter\exit or inside your home? NONE * PCP DR. HENSON * Pharmacy [facility] * Preadmission Environment Home with Family * ADLs Independent * Equipment Bedside Commode Cane Rolling Walker * Other Equipment WALKER WITH BRAKES AND SEAT [facility] - MEDICAL EQUIPMENT PROVIDER * List name and contact numbers for known caregivers / representatives who currently or will assist patient after discharge: BUTCH MARVIN, SISTER, * Verbal permission to speak to the caregivers and representatives has been obtained from the patient. N/A * Community resources currently utilized None * Please name any agencies selected above. NONE * Additional services required to return to the preadmission environment? No * Can the patient safely return to the preadmission environment? Yes * Has this patient been hospitalized within the prior 30 days at any hospital? No Coverage Notice Reviewer: [id number] Borges Notice Issued Date-Time: 02/25/2019 12:00 Notice Type: IM Discharge Notice Notice Delivered To: Patient Relationship to Patient: Four Slide Machine Setter Name: Delivery Method: HAND - Hand Delivered Tracey Days: Prior Verbal Notification: Recipient Understood Notice: Yes Recipient Signature: Yes Med Rec Note Co-signed by Attending: Coverage Notice Comment: Reviewer: [id number] Borges Notice Issued Date-Time: 02/26/2019 8:15 Notice Type: IM Discharge Notice Notice Delivered To: Patient Relationship to Patient: Four Slide Machine Setter Name: Delivery Method: HAND - Hand Delivered Tracey Days: Prior Verbal Notification: Recipient Understood Notice: Yes Recipient Signature: Yes Med Rec Note Co-signed by Attending: Coverage Notice Comment: [facility] Last DP export: 02/26/19 8:57 am Patient Name: PAMELA BOOKER Page [id number] at 1325 All edits/amendments must be made on the electronic document DICTATION DATE: 02/26/19 1324 ENTRY LEVEL BUYER: SAMY 02/26/19 1324 RPT#: [id number] DC DATE: STATUS: ADM IN [facility] [address] [place] [address] END OF REPORT
[2019-02-26 14:10] LABS: EHRLICHIA CHAFF IGG Negative (Neg:<1:64); EHRLICHIA CHAFF IGM Negative (Neg:<1:20); HGE IGG TITER Negative (Neg:<1:64); HGE IGM TITER Negative (Neg:<1:20)
--- NOTE | 2019-02-26 14:58 | NUR ---
SPEECH THERAPY RECOMMENDED OUTPATIENT ST. PT AND FAMILY MEMBER IS VERY ADAMENT UPON LEAVING AND DOES NOT WANT TO COME BACK TO [facility] FOR SPEECH SERVICES. PT REQUEST ST IN [place]. PRESCRIPTION PRINTED FOR SPEECH SERVICES AND SIGNED BY VANNESSA SMITH. DISCHARGE INSTRUCTIONS REVIEWED WITH PT AND ALL QUESTIONS ANSWERED. PIV REMOVED WITH CATHETER TIP INTACT. TELEMETRY REMOVED AND GIVEN TO MATCHER OFFBEARER. PT ASSISTED TO FRONT OF HOSPITAL VIA WHEELCHAIR.
--- NOTE | 2019-02-26 15:08 | MORECARE ---
CASE MANAGEMENT DISCHARGE SUMMARY PATIENT: PAMELA BOOKER UNIT: [id number] ADM DATE: 02/20/19 AGE: 73 : 44 SEX: F ROOM/BED: D.2102 AUTHOR: YADIEL,DOC PHYSICIAN: REFERRING PHYSICIAN: RANDAL ROY MD DATE OF SERVICE: 02/26/19 Discharge Plan Patient Name: PAMELA BOOKER Facility: [facility]:[place] : 1945 Planned Disposition: Outpatient clinics\services (Programs) Anticipated Discharge Date: 02/26/19 Discharge Date: 02/26/2019 Expected LOS: 6 Initial Reviewer: [id number] Initial Review Date: 02/25/2019 Generated: 02/26/19 4:08 pm Comments DCP- Discharge Planning Updated by [id number]: Rishi Borges on 02/26/19 2:[address] Patient Name: PAMELA BOOKER Encounter No: [id number] : 1945 Primary Insurance: MEDICARE A & B Anticipated DC Date: 02-26-2019 Planned Disposition: Outpatient clinics\services (Programs) External Planned Provider: OUTPATIENT SPEECH THERAPY WITH AGENCY OF PATIENTS CHOOSING. DCP follow-up note: CM SPOKE TO JORGITO ESPINOSA, PT DECIDED THAT SHE WANTED OUTPATIENT SPEECH THERAPY AND WAS GOING TO ARRANGE THE SERVICE HERSELF WITH A PROVIDER OF HER CHOOSING. PT AND FAMILY REFUSED TO WAIT FOR CM TO MAKE ARRANGEMENTS FOR THEM, PT WAS PROVIDED WITH A SIGNED ORDER FOR SPEECH THERAPY TO ARRANGE IT ON HER OWN. CM CALLED AASHISH AT [facility] AND CANCELLED HOME HEALTH REFERRAL. RUY Russell DCP- Discharge Planning Updated by [email or web address]: Rishi Borges on 02/26/19 12:[address] Patient Name: PAMELA BOOKER Encounter No: [id number] : 1945 Primary Insurance: MEDICARE A & B Anticipated DC Date: 02-26-2019 Planned Disposition: Home with Home Health External Planned Provider: [facility] DCP follow-up note: CM RECEIVED ORDER TO SPEAK WITH FAMILY REGARDING DISCHARGE NEEDS. CM SPOKE TO PT IN ROOM, OBTAINED PERMISSION TO SPEAK TO HER SIGNIFICANT OTHER. CM CALLED PT'S SIGNIFICANT OTHER, ZAYRA ROJAS, . ZAYRA REPORTS HE AND PT HAVE BEEN PARTNERS FOR 46 YEARS AND NEVER BOTHERED TO GET . ZAYRA REPORTS THAT HE IS RETIRED AND IS HOME ALL OF THE TIME. ZAYRA REPORTS THAT HE CAN ASSIST PT AT HOME IF NEEDED AND THAT PT'S SISTER, CECY, IS GOING TO SPEND SOME TIME WITH THEM AND WILL ALSO BE AVAILABLE TO ASSIST; ZAYRA FEELS THAT HE AND CECY WILL BE ABLE TO TAKE CARE OF PT AT HOME. ZAYRA IS CONCERNED REGARDING PT'S MENTAL STATUS, PT IS HAVING RECALL ISSUES. CM DICUSSED HOME HEALTH AND PT'S REFUSAL OF REHAB SERVICES AND HOME HEALTH. ZAYRA AGAIN REPORTS ABLITLITY TO CARE FOR PT AT HOME, BUT DOES WANT HOME HEALTH AND FEELS THAT HE CAN CONVINCE PT TO ACCEPT THE SERVICES. ZAYRA REPORTS HE AND CECY WILL BE PICKING UP PT FOR DISCHARGE FROM THE HOSPITAL. CM SPOKE TO PT IN ROOM, DISCUSSED REHAB SERVICES, HOME HEALTH SERVICES AND MEDICAL EQUIPMENT AVAILABILITY. PT REPORTS HAVING NEEDED MEDICAL EQUIPMENT, DECLINES REHAB PLACEMENT, AND WILL ACCEPT HOME HEALTH SINCE THE DOCTOR AND ZAYRA THINK IT IS NECESSARY. PT REQUESTED [facility] THEY USED THEM FOR PT'S MOTHER IN THE PAST. CHOICE SIGNED FOR [facility]. CM CALLED [facility], , SPOKE TO AASHISH, REFERRAL PROVIDED, PT PLACED ON SCHEDULE FOR TOMORROW. CM FAXED REFERRAL INFORMATION TO [facility] AT [phone]. FOR DISCHARGE, FAX DISCHARGE INFORMATION TO [facility] AT [phone]. Rishi Borges CASE MANAGEMENT Appended by Rishi Borges on 02/26/2019 13:21 CDT: CM RECEIVED DISCHARGE, FAXED DISCHARGE INFORMATION TO [facility] AT [phone]. GENOVEVA CALLED AND NOTIFIED AASHISH AT [facility], . Rishi Borges, CASE MANAGEMENT DCP- Discharge Planning Updated by [id number]: Rishi Borges on 02/25/19 11:[address] Patient Name: PAMELA BOOKER Admission Status: ER Accout number: [id number] Admission Date: 02-20-2019 : 1945 Admission Diagnosis:ALTERED MENTAL STATUS, UNSPECIFIED Attending: RANDAL ROY Current LOS: 5 Anticipated DC Date: 02-25-2019 Planned Disposition: Home Primary Insurance: MEDICARE A & B Discharge Planning Comments: CM RECEIVED ORDER FOR INPATIENT REHAB PRESCREENING. CM MET WITH PT IN ROOM TO DISCUSS DISCHARGE PLANNING AND NEEDS. PT REPORTS LIVING AT HOME INDEPENDENTLY WITH A FRIEND. PT REPORTS HAVING ALL NEEDED MEDICAL EQUIPMENT AT HOME LEFT FROM HER MOTHER. PT HAS ROLLATOR WALKER, CANE AND BEDSIDE COMMODE TO USE IF SHE NEEDS IT. PT'S PREFERRED MEDICAL EQUIPMENT PROVIDER IS [facility]. PT HAS NO OUTSIDE SERVICES ASSISTING IN THE HOME. CM DISCUSSED AVAILABILITY OF HOME HEALTH, REHAB SERVICES AND MEDICAL EQUIPMENT. PT DENIES DISCHARGE NEEDS, STATES SHE IS DOING WELL AND CAN GO HOME AT DISCHARGE. PT REPORTS HER FRIEND OR FAMILY WILL PICK HER UP FOR DISCHARGE HOME. IMPORTANT MESSAGE FROM MEDICARE PROVIDED AND EXPLAINED. CM NOTIFIED [facility] THAT PT DECLINES REHAB SERVICES. PT DECLINES REHAB SERVICES WELL HOME HEALTH. PT PLANS TO DISCHARGE HOME WHERE SHE LIVES WITH A FRIEND. PT REPORTS HAVING SOMEONE FOR TRANSPORT HOME AT DISCHARGE. CM TO FOLLOW AND ASSIST IF NEEDED. Environmental Web Crawler: Rishi Borges DCPIA - Discharge Planning Initial Assessment Updated by [id number]: Rishi Borges on 02/25/19 12:11 pm * Is the patient Alert and Oriented? Yes * How many steps to enter\exit or inside your home? NONE * PCP DR. HENSON * Pharmacy [facility] * Preadmission Environment Home with Family * ADLs Independent * Equipment Bedside Commode Cane Rolling Walker * Other Equipment WALKER WITH BRAKES AND SEAT [facility] - MEDICAL EQUIPMENT PROVIDER * List name and contact numbers for known caregivers / representatives who currently or will assist patient after discharge: BUTCH MARVIN, SISTER, * Verbal permission to speak to the caregivers and representatives has been obtained from the patient. N/A * Community resources currently utilized None * Please name any agencies selected above. NONE * Additional services required to return to the preadmission environment? No * Can the patient safely return to the preadmission environment? Yes * Has this patient been hospitalized within the prior 30 days at any hospital? No Coverage Notice Reviewer: [id number] - Rishi Borges Notice Issued Date-Time: 02/25/2019 12:00 Notice Type: IM Discharge Notice Notice Delivered To: Patient Relationship to Patient: Track Laying Equipment Operator Name: Delivery Method: HAND - Hand Delivered Tracye Days: Prior Verbal Notification: Recipient Understood Notice: Yes Recipient Signature: Yes Med Rec Note Co-signed by Attending: Coverage Notice Comment: Reviewer: [id number] - Rishi Borges Notice Issued Date-Time: 02/26/2019 8:15 Notice Type: IM Discharge Notice Notice Delivered To: Patient Relationship to Patient: Track Laying Equipment Operator Name: Delivery Method: HAND - Hand Delivered Tracey Days: Prior Verbal Notification: Recipient Understood Notice: Yes Recipient Signature: Yes Med Rec Note Co-signed by Attending: Coverage Notice Comment: [facility] Last DP export: 02/26/19 12:25 pm Patient Name: PAMELA BOOKER Page [id number] at 1508 All edits/amendments must be made on the electronic document DICTATION DATE: 02/26/19 1507 MANAGER GLOBAL COMMUNICATIONS: SAMY 02/26/19 1507 RPT#: [id number] MS DATE:02/26/19 STATUS: DIS IN [facility] [address] [place] [address] END OF REPORT
[2019-03-05 07:14] LABS: F. TULARENSIS - IGG Negative (Negative); F. TULARENSIS - IGM Negative (Negative)
== END 2019-02-26 15:01 | disposition home or self-care (01) | DRG 65 ==
LOC: D.ER 21:08 → D.M2 23:05
PROVIDERS: Family Medicine; ADMIT Family Medicine; ATTEND Family Medicine
DX: I63.9 Cerebral infarction, unspecified (principal); N17.9 Acute kidney failure, unspecified; I10 Essential (primary) hypertension; R00.1 Bradycardia, unspecified; D64.9 Anemia, unspecified; E87.6 Hypokalemia; E83.42 Hypomagnesemia; I25.10 Atherosclerotic heart disease of native coronary artery without angina pectoris; M06.9 Rheumatoid arthritis, unspecified; F41.9 Anxiety disorder, unspecified; R40.2364 Coma scale, best motor response, obeys commands, 24 hours or more after hospital admission; R40.2144 Coma scale, eyes open, spontaneous, 24 hours or more after hospital admission; R40.2244 Coma scale, best verbal response, confused conversation, 24 hours or more after hospital admission

== ENCOUNTER 2019-07-14 17:32 | Inpatient (IN) | payer MEDICARE, BC ==
[~2019-07-14] VITALS: Ht 149.9 cm; Wt 49.7 kg
--- NOTE | ~2019-07-14 | HEMODYNAMI ---
PATIENT:PAMELA BOOKER MEDICAL RECORD: [id number] : 43 LOCATION:[facility].2219 ADMISSION DATE: 07/15/19 Generatedon:07/22/20199:01 Patient name: PAMELA BOOKER Patient #: [id number] SSN: : 1945 Date of study: 07/22/2019 Page: Of Hemodynamic Procedure Report Patient Data Patient Demographics Procedure consent was obtained First Name: PAMELA Gender: Female Last Name: JHONY : 1945 Patient #: [id number] Age: 73 year(s) Race: Unknown Additional ID: [id number] Contact details Address: [address] [place] [address] State: [place] City: [place] Zip code: [address] Past Medical History Allergies: No known allergies Admission Admission Data Admission Date: 07/15/2019 Admission Time: 15:32 Room #: [facility] Height (in.): 59 BSA: 1.45 (m2) Height (cm.): 149.86 BMI: 23.02 (kg/m2) Weight (lbs.): 114 Weight (kg.): 51.71 Procedure Procedure Types Cath Procedure Peripheral Cath Diagnostic Procedure Refrigerator Car Icer Peripheral Procedures Nephro Nephrostomy Tube Removal Procedure Description Procedure Date Procedure Date: 07/22/2019 Procedure Start Time: 8:49 Procedure Staff Name Function Blake Juarez MD Performing Physician Priyanka Ramey RT Awning Finisher Ignacia Chan RN Nurse Misha Ac RT Scrub Procedure Data Cath Procedure Fluoroscopy Diagnostic fluoroscopy Total fluoroscopy Time: 2.3 time: 2.3 min min Diagnostic fluoroscopy Total fluoroscopy dose: 33 dose: 33 mGy mGy Contrast Material Contrast Material Type Amount (ml) Isovue 300 15 Hemodynamics Rest BSA: 1.45 (m2) O2 Consumption: Estimated: 197.2 (ml/min) O2 Consumption indexed: Estimated:136 (ml/min/m) Pre Cath Intra NCS Post Cath Procedure Log Time Note 8:25:28 Patient Height : 59 inches 8:25:28 Patient Weight : 114 lbs 8:25:40 Time tracking: Regular hours (M-F 7:00 - 5:00) 8:27:00 Patient received from Med/Surg to IR Alert and oriented. Tansferred to table in Prone position. 8:27:02 Signed procedure consent form obtained from patient. 8:27:03 Warm blankets applied, and leonardo hugger turned on for patient comfort. 8:27:03 Correct patient and procedure confirmed by team. 8:27:17 8:27:24 H&P Date Dictated: 07/22/2019 Within 30 days and on chart.. 8:27:26 Pre-procedure instructions explained to patient. 8:27:26 Pre-op teaching completed and patient verbalized understanding. 8:27:50 Left Renal was prepped with chlora-prep and draped in sterile fashion. 8:27:53 8:28:02 Use device set IR Diagnostic 8:28:09 Sterile Angiographic Pack opened to sterile field. 8:28:10 Bag Decanter (2002) opened to sterile field. 8:29:39 8:48:29 Physician arrived 8:48:29 --------ALL STOP TIME OUT------ 8:48:30 Final Timeout: patient, procedure, and site verified with staff and physician. All members of the team are in agreement. 8:49:02 Procedure started. 8:49:03 Full Disclosure recording started 8:49:16 Local anesthetic to Left Renal area with Lidocaine 1% by Blake Juarez MD.INITIAL ACCESS ONLY 8:57:50 GLIDE WIRE ANGLE 180cm ([id number]) opened to sterile field. 8:59:53 15cc's of contrast injected into tube and determined to remove nephrostomy tube. 9:00:00 Procedure ended.(Physican Out) 9:00:31 Fluoroscopy time 02.30 minutes. 9:00:35 Fluoroscopy dose: 33 mGy 9:00:35 Flurop Dose total: 33 9:00:40 Contrast amount:Isovue 300 15ml. 9:00:42 Procedure and supply charges have been captured, reviewed, submitted and are correct. 9:01:30 Report given to Med/Surg. Device Usage Item Name Manufacture Quantity Catalog Hospital Part Current Minimal Lot# / Number Charge Number Stock Stock Serial# Code Sterile Cardinal 1 [id number] Angiographic Health Pack Bag Decanter Microtek 1 [id number] 5 () [employer] GLIDE WIRE Terumo 1 [id number] 5 ANGLE 180cm ([id number]) Signature Audit [place]ah[place] Stage Time Signature Unsigned Intra-Procedure 07/22/2019 Priyanka Ramey 9:01:52 AM RT(R) [place] [address] [place] [address]
--- NOTE | ~2019-07-14 | HEMODYNAMI ---
PATIENT:PAMELA BOOKER MEDICAL RECORD: [id number] : 43 LOCATION:[facility] ADMISSION DATE: 07/15/19 Generatedon:07/18/201911:19 Patient name: PAMELA BOOKER Patient #: [id number] SSN: : 1945 Date of study: 07/18/2019 Page: Of Hemodynamic Procedure Report Patient Data Patient Demographics Procedure consent was obtained First Name: PAMELA Gender: Female Last Name: JHONY : 1945 Patient #: [id number] Age: 73 year(s) Race: Unknown Additional ID: [id number] Contact details [address]: [address] [place] [address] State: [place] City: [place] Zip code: [address] Past Medical History Allergies: No known allergies Admission Admission Data Admission Date: 07/15/2019 Admission Time: 15:32 Room #: 2219 Height (in.): 59 BSA: 1.45 (m2) Height (cm.): 149.86 BMI: 23.02 (kg/m2) Weight (lbs.): 114 Weight (kg.): 51.71 Procedure Procedure Types Cath Procedure Peripheral Cath Diagnostic Procedure Child Care Centre Manager Peripheral Procedures Nephro Nephrostomy Tubes Procedure Description Procedure Date Procedure Date: 07/18/2019 Procedure Start Time: 10:01 Procedure Staff Name Function Blake Juarez MD Performing Physician Priyanka Ramey RT Feed Mill Manager Ignacia Chan RN Nurse Misha Ac RT Scrub Procedure Data Cath Procedure Fluoroscopy Diagnostic fluoroscopy Total fluoroscopy Time: time: 17.7 min 17.7 min Diagnostic fluoroscopy Total fluoroscopy dose: 184 dose: 184 mGy mGy Contrast Material Contrast Material Type Amount (ml) Isovue 300 105 Procedure Medications Medication Administration Route Dosage Heparin Flush Bag added to field 1 bags (1000units/500ml NS) Lidocaine 1% added to field 20 unlisted medication 1 Versed I.V. 1 mg Fentanyl I.V. 50 mcg Versed I.V. 1 mg Fentanyl I.V. 50 mcg Versed I.V. 1 mg Fentanyl I.V. 50 mcg Versed I.V. 1 mg Fentanyl I.V. 50 mcg Hemodynamics Rest BSA: 1.45 (m2) O2 Consumption: Estimated: 139.53 (ml/min) O2 Consumption indexed : Estimated:96.23 (ml/min/m) Heart Rate: 83 (bpm) Snapshots Pre Cath Intra NCS Post Cath Vital Signs Time Heart Resp SPO2 etCO2 NIBP (mmHg) Rhythm Pain Sedation Rate (ipm) (%) (mmHg) Status Level (bpm) 9:59:00 79 18 100 24.8 164/75(128) NSR 0 (11) 10(A) , No pain 10:03:22 80 19 100 24.1 158/63(144) NSR 0 (11) 8(A) , No pain 10:07:40 81 18 100 30.1 153/70(99) NSR 0 (11) 8(A) , No pain 10:11:58 81 16 100 24.8 167/67(110) NSR 0 (11) 8(A) , No pain 10:16:26 71 12 100 36.8 121/53(87) NSR 0 (11) 8(A) , No pain 10:20:34 74 13 100 36.8 131/63(85) NSR 0 (11) 8(A) , No pain 10:24:48 72 12 100 36.9 122/59(87) NSR 0 (11) 8(A) , No pain 10:29:10 72 12 100 38.4 132/65(94) NSR 0 (11) 8(A) , No pain 10:33:22 68 15 100 36.9 143/65(111) NSR 0 (11) 8(A) , No pain 10:37:36 70 14 100 36.1 148/69(100) NSR 0 (11) 8(A) , No pain 10:41:52 78 12 100 35.4 151/68(112) NSR 0 (11) 8(A) , No pain 10:46:08 73 16 100 33.8 163/69(104) NSR 0 (11) 8(A) , No pain 10:50:30 71 14 100 33.1 154/69(120) NSR 0 (11) 8(A) , No pain 10:54:48 77 15 100 28.6 167/73(131) NSR 0 (11) 8(A) , No pain 10:59:09 69 16 100 27.8 159/70(134) NSR 0 (11) 8(A) , No pain 11:03:29 67 14 100 26.3 174/69(133) NSR 0 (11) 8(A) , No pain 11:07:51 68 12 100 39.8 159/66(104) NSR 0 (11) 8(A) , No pain 11:12:50 69 12 100 36.1 Measuring NSR 0 (11) 8(A) , No pain 11:13:23 68 13 100 36.1 152/64(104) NSR 0 (11) 8(A) , No pain 11:17:41 69 13 100 36.8 153/68(91) NSR 0 (11) 8(A) , No pain Medications Time Medication Route Dose Verified Delivered Reason Notes Effe ctiveness by by 10:01:49 Heparin Flush added 1 Blake Lozano used for Bag to bags Ann Juarez MD procedure (1000units/500ml field MONTIEL NS) 10:02:07 Lidocaine 1% added 20ml Blake Lozano for local to vial Ann Juarez MD anesthetic field MONTIEL 10:11:13 cefepime ivpb 1 gm Blake Beth Per Dustin Juarez RN physician 10:11:25 Versed I.V. 1 mg Blake Beth for Dustin Juarez RN sedation 10:11:34 Fentanyl I.V. 50 Blake Guzmanody for mcg Dustin Juarez RN sedation 10:21:58 Versed I.V. 1 mg Blake Ignacia for Dustin Juarez RN sedation 10:22:07 Fentanyl I.V. 50 Blake Ignacia for mcg Dustin Juarez RN sedation 10:30:28 Versed I.V. 1 mg Blake Ignacia for Dustin Juarez RN sedation 10:30:55 Fentanyl I.V. 50 Blake Ignacia for mcg Dustin Juarez RN sedation 11:03:14 Versed I.V. 1 mg Blake Beth for Dustin Juarez RN sedation 11:03:21 Fentanyl I.V. 50 Dustin Soto RN sedation Procedure Log Time Note 8:19:01 Patient Weight : 114 lbs 8:19:12 Patient Height : 59 inches 9:40:59 Time tracking: Regular hours (M-F 7:00 - 5:00) 9:41:31 Plan of Care:Hemodynamics will remain stable., Cardiac rhythm will remain stable., Comfort level will be maintained., Respiratory function will remain adequate., Patient/ family verbilizes understanding of procedure., Procedure tolerated without complication., Recovers from procedure without complications.. 9:41:57 Patient received from Med/Surg to IR Alert and oriented. Tansferred to table in Supine position. 9:45:33 Signed procedure consent form obtained from patient. 9:45:54 H&P Date Dictated: 07/18/2019 Within 30 days and on chart.. 9:45:56 Pre-procedure instructions explained to patient. 9:45:57 Pre-op teaching completed and patient verbalized understanding. 9:45:59 Family in waiting room. 9:46:02 Patient NPO since Midnight. 9:46:14 Patient allergic to No known allergies 9:46:20 Is the patient allergic to Iodine/contrast media? No. 9:46:23 - 9:46:33 Use device set IR Diagnostic 9:46:37 Tegaderm 4 x 4 ([id number]) opened to sterile field. 9:46:38 Sterile Angiographic Pack opened to sterile field. 9:46:40 Bag Decanter () opened to sterile field. 9:47:13 KIT, INTRODUCER ACCUSTICK II W/C ([id number]) opened to sterile field. 9:47:40 - 9:47:48 Is patient on blood thinner?Yes 9:47:53 ACC The patient was administered the following blood thiners within the last 24 hours: ACCLovenox 9:47:57 Patient diabetic? No. 9:47:59 - 9:48:01 ----Pre-sedation anethsthesia assessment.---- 9:48:04 Previous problem with sedation/anesthesia? No ? 9:48:07 Snore? No 9:48:09 Sleep apnea? No 9:48:12 Deviated septum? No 9:48:14 Opens mouth fully? Yes 9:48:17 Sticks out tongue? Yes 9:48:20 Airway obstruction? No ? 9:48:27 Dentures? No not in :48:39 IV patent on arrival in right wrist with D5/.45%NaCl at KVO. 9:48:41 - 9:57:47 Vital chart was started 10:00:12 ECG and BP/O2 sat monitors applied to patient. 10:00:13 Baseline sample Acquired. 10:00:15 Full Disclosure recording started 10:00:18 - 10:00:37 Left abdomen area was prepped with chlora-prep and draped in sterile fashion 10:00:41 Physician arrived 10:00:42 --------ALL STOP TIME OUT------ 10:00:43 Final Timeout: patient, procedure, and site verified with staff and physician. All members of the team are in agreement. 10:01:09 Fire Safety Assessment: A--An alcohol-based skin anteseptic being used preoperatively., C--Open oxygen or nitrous oxide is being used. 10:01:19 3a) 45-59 Moderately reduced kidney function. 10:01:27 Maximum allowable contrast dose (3.7 X eGFR X 0.75)141.5 ml. 10:01:34 Procedure started. 10:01:47 Local anesthetic to Left Renal area with Lidocaine 1% by Blake Juarez MD.INITIAL ACCESS ONLY 10:01:49 Heparin Flush Bag (1000units/500ml NS) 1 bags added to field was administered by Blake Juarez MD; used for procedure; Verbal order read back and verified. 10:02:07 Lidocaine 1% 20ml vial added to field was administered by Blake Juarez MD; for local anesthetic; Verbal order read back and verified. 10:11:13 cefepime 1 gm ivpb was administered by Ignacia Chan RN; Per physician; Verbal order read back and verified. 10:11:25 Versed 1 mg I.V. was administered by Ignacia Chan RN; for sedation; Verbal order read back and verified. 10:11:34 Fentanyl 50 mcg I.V. was administered by Ignacia Chan RN; for sedation ; Verbal order read back and verified. 10:14:29 CHIBA 22 X 15 needle opened to sterile field. 10:20:20 NITINOL .018 80cm wire ([id number]) opened to sterile field. 10:20:21 GLIDE WIRE Angled Super Stiff 180cm (CS3720) opened to sterile field. 10:20:23 GLIDE CATHETER 5FR ANGLED 65cm (CG507) opened to sterile field. 10:21:58 Versed 1 mg I.V. was administered by Ignacia Chan RN; for sedation; Verbal order read back and verified. 10:22:07 Fentanyl 50 mcg I.V. was administered by Ignacia Chan RN; for sedation ; Verbal order read back and verified. 10:26:07 ROADRUNN .035 145 glide wire (Z72808) opened to sterile field. 10:26:08 BENTSON 145cm wire (S36661) opened to sterile field. 10:26:09 TORQUE DEVICE PLASTIC .038 ( TD01) opened to sterile field. 10:29:58 AMPLATZ Super stiff 180cm wire ([id number]) opened to sterile field. 10:30:28 Versed 1 mg I.V. was administered by Ignacia Chan RN; for sedation; Verbal order read back and verified. 10:30:39 SHEATH 6FR X 25CM RADIOPAUQE PINNICALE (BSF094) opened to sterile field . 10:30:55 Fentanyl 50 mcg I.V. was administered by Ignacia Chan RN; for sedation ; Verbal order read back and verified. 10:35:40 GLIDE WIRE ADVANTAGE 260cm (OD3926) opened to sterile field. 10:35:41 BAG, DRAINAGE EMPTY 600ML W/ILANA (UDH888) opened to sterile field. 10:35:42 STOPC[address] 3-Way Large Bore (P93014) opened to sterile field. 10:38:28 SHEATH 6FR Destination (RSR01) opened to sterile field. 10:38:29 Abscession 8Fr drainage catheter ([id number]) opened to sterile field. 10:40:36 CXI Catheter 90cm (L48525) opened to sterile field. 10:43:09 INFLATOR BasixTOUCH (OH9991) opened to sterile field. 10:43:37 Inflate balloon Inflation number: 1 A Evercross 3 x 4 x 135 Balloon ([id number]) was prepped and advanced across the Undefined1 , then inflated . 10:49:40 [place] Sci 8FR.X 24CM Ureteral Stent ([id number]) opened to sterile field. 10:53:47 Inflate balloon Inflation number: 2 A Evercross 4 x 6 x 135 Balloon ([id number]) was prepped and advanced across the Undefined1 , then inflated . 10:55:36 [place] Sci 8FR X 26 CM Ureteral Stent ([id number]) opened to sterile field. 11:00:20 Inflate balloon Inflation number: 1 A Evercross 5 x 6 x 135 Balloon ([id number]) was prepped and advanced across the Undefined2 , then inflated . 11:03:14 Versed 1 mg I.V. was administered by Ignacia Chan RN; for sedation; Verbal order read back and verified. 11:03:21 Fentanyl 50 mcg I.V. was administered by Ignacia Chan RN; for sedation ; Verbal order read back and verified. 11:12:36 SUTURE ETHILON 2-0 BLK MONO FS opened to sterile field. 11:12:55 8fr drained sutured in 11:13:03 Procedure ended.(Physican Out) 11:13:41 Fluoroscopy time 17.70 minutes. 11:13:54 Fluoroscopy dose: 184 mGy 11:13:54 Flurop Dose total: 184 11:13:59 Contrast amount:Isovue 300 105ml. 11:17:06 Procedure and supply charges have been captured, reviewed, submitted an d are correct. 11:17:14 Report given to Med/Surg. 11:19:53 Vital chart was stopped Intervention Summary Intervention Notes Time ActionType Lesion and Equipment Used Action# Pressure Duration Attributes 10:43:37 Inflate Undefined1 Evercross 3 x 4 1 0 00:00 balloon x 135 Balloon ([id number]) 10:53:47 Inflate Undefined1 Evercross 4 x 6 2 0 00:00 balloon x 135 Balloon ([id number]) 11:00:20 Inflate Undefined2 Evercross 5 x 6 1 0 00:00 balloon x 135 Balloon ([id number]) Device Usage Item Name Manufacture Quantity Catalog Number Hospital Part Current Minimal Lot# / Charge Number Stock Stock Serial# Code Tegaderm 4 x 4 3M 1 1626W [id number] [id number] [id number] 5 (1626W) Sterile Cardinal 1 [id number] 636679 283949 5 Angiographic Health Pack Bag Decanter Microtek 1 152538 34518 795006 5 (2001S) Medical Inc. KIT, INTRODUCER [place] 1 [id number] 543352 166085 658513 5 ACCUSTICK II Scientific W/C ([id number]) CHIBA 22 X 15 Cook Medical 1 Y48225 095020 273693 5 [id number] needle NITINOL .018 Medtronic 1 K353393 795238 190213 5 80cm wire (L863778) GLIDE WIRE Terumo 1 LU9809 998587 942336 5 Angled Super Stiff 180cm (FS3553) GLIDE CATHETER Terumo 1 CG507 159711 669116 5 5FR ANGLED 65cm (CG507) ROADRUNNER .035 Cook Medical 1 U46526 225666 281209 532766 5 145 glide wire (C99409) BENTSON 145cm [employer] 1 K55033 723949 042635 5 wire (H41247) TORQUE DEVICE [place] 1 TD01 888316 160589 403714 5 PLASTIC .038 ( Scientific TD01) AMPLATZ Super [place] 1 [id number] 562909 303171 988856 5 stiff 180cm Scientific wire ([id number]) SHEATH 7FR X Terumo 1 VXY135 613135 750780 873295 1 25CM RADIOPAUQE PINNICALE (BDO035) GLIDE WIRE Terumo 1 QX0643 176552 614303 5 ADVANTAGE 260cm (ML9401) BAG, DRAINAGE [facility] 1 SZS574 340953 388764 643977 5 EMPTY 600ML W/ILANA (DEY724) STOPCOCK 3-Way [facility] 1 N12009 733835 1929 438356 5 [id number] Large Bore (D76996) SHEATH 6FR Terumo 1 RSR01 706319 04658 490003 5 Destination (RSR01) Abscession 8Fr Angiodynamics 1 [id number] 409252 182899 200233 5 drainage catheter ([id number]) CXI Catheter [facility] 1 S40667 424765 584539 370782 5 7496921 90cm (T92818) INFLATOR [facility] 1 KY3626 873449 392947 168080 5 BasixTOUCH (JA0832) Evercross 3 x 4 Medtronic 1 [id number] 328505 424389 038619 5 x 135 Balloon ([id number]) [place] Sci [place] 1 [id number] 031795 459115 211394 5 8FR.X 24CM Scientific Ureteral Stent ([id number]) Evercross 4 x 6 Medtronic 1 [id number] 776520 170578 137269 5 x 135 Balloon ([id number]) [place] Sci 8FR [place] 1 [id number] 119494 356860 920275 5 X 26 CM Scientific Ureteral Stent ([id number]) Evercross 5 x 6 Medtronic 1 [id number] 099665 522462 333530 5 x 135 Balloon ([id number]) SUTURE ETHILON Ethicon 1 664H 553224 758416 5 2-0 BLK MONO FS Signature Audit [place] Stage Time Signature Unsigned Intra-Procedure 07/18/2019 Priyanka Ramey 11:19:49 AM RT(R) [facility] [address] [facility] [place] [address]
[~2019-07-14 17:32] MED LIST: ALENDRONATE SOD40 MG PO; ASPIRIN325 MG PO; FOLIC ACID1 MG PO; METHOTREXATE2.5 MG PO; NEURONTIN 300300 MG PO; ZOCOR20 MG PO
[2019-07-14 17:58] LABS: APPEARANCE CLEAR (CLEAR); BILIRUBIN NEGATIVE (NEGATIVE); COLOR STRAW (YELLOW); GLUCOSE NEGATIVE (NEGATIVE); KETONE NEGATIVE (NEGATIVE); NITRITE NEGATIVE (NEGATIVE); PROTEIN NEGATIVE (NEGATIVE); SPECIFIC GRAVITY 1.015 (1.005-1.020); UROBILINOGEN NORMAL (NORMAL)
[2019-07-14 18:00] LABS: BACTERIA FEW /hpf (NEGATIVE); RED CELLS - URINE 0-5 /hpf (0-5); WHITE CELLS - URINE 0-5 /hpf (NEGATIVE)
[2019-07-14 18:28] LABS: BASOPHILS 0.1 % (0-2); EOSINOPHILS 0 % (0-7); HEMATOCRIT 35.8 % (36.0-48.0); IMMATURE GRANULOCYTES 0.1 % (0-5); LYMPHOCYTES 12.4 % (15-50); MCH 33.1 pg (26.0-34.0); MCHC 33.5 g/dL (31.0-37.0); MCV 98.6 fL (80.0-100.0); MONOCYTES 4.5 % (2-11); NEUTROPHILS 82.9 % (40-80); PLATELET COUNT 167 10x3/uL (130-400); RBC 3.63 10x6/uL (4.00-5.40); RDW 13.9 % (11.5-14.5); WBC 7.3 10x3/uL (4.8-10.8)
[2019-07-14 18:36] LABS: CALC OSMOLALITY 287 mosm/kg (275-300); CALCIUM 8.8 mg/dL (8.5-10.1); CARBON DIOXIDE 28.8 mmol/L (21.0-32.0); CHLORIDE - SERUM 107 mmol/L (98-107); CREATININE - SERUM 1.2 mg/dL (0.6-1.3); GLUCOSE 117 mg/dL (74-106); POTASSIUM - SERUM 3.4 mmol/L (3.5-5.1); SODIUM 144 mmol/L (136-145); UREA NITROGEN 13 mg/dL (7-18); eGFR NON AFRICAN AMERICAN 46 mL/min (90-120)
[2019-07-14 18:51] LABS: ALBUMIN 3.6 g/dL (3.4-5.0); ALKALINE PHOSPHATASE 105 U/L (46-116); ALT (SGPT) 32 U/L (10-68); BILIRUBIN - TOTAL 0.75 mg/dL (0.2-1.3); CKMB 1.1 U/L (0.0-3.6); CREATINE KINASE 76 UL (21-215); MAGNESIUM - SERUM 1.6 mg/dL (1.8-2.4); PROTEIN - SERUM 6.6 g/dL (6.4-8.2)
[2019-07-14 18:52] LABS: TROPONIN-I < 0.017 ng/mL (0.000-0.060)
--- NOTE | 2019-07-14 19:53 | NUR ---
PT ARRIVED TO FLOOR FROM ER VIA STRETCHER. VITAL SIGNS STABLE. PT AMBULATED TO BATHROOM TO VOID. STEADY GAIT. PUT TELEMETRY ON PT. INSTRUCTED PT TO CALL FOR ASSISTANCE WHEN GETTING UP. REVIEWED HOME MEDS AND HISTORY. ASSESSMENT COMPLETE PER FLOW-SHEET. NO OTHER NEEDS. WILL REASSESS AND CONTINUE TO MONITOR.
[2019-07-14 20:00] VITALS: BP 169/70
[2019-07-14] MEDS ORDERED: ZOCOR20 MG PO (20:03)
[2019-07-14 23:10] VITALS: BP 169/70; BMI 23.2
[2019-07-15] VITALS: BP 126/60
--- NOTE | 2019-07-15 03:45 | NUR ---
I have reviewed this patient and I concur with the Shift Assessment completed by the Licensed Practical Nurse today this shift.
[2019-07-15 04:00] VITALS: BP 136/58
[2019-07-15 05:44] LABS: BASOPHILS 0.2 % (0-2); EOSINOPHILS 0.7 % (0-7); HEMATOCRIT 32.2 % (36.0-48.0); HEMOGLOBIN 10.9 g/dL (12-16); LYMPHOCYTES 22.1 % (15-50); MCH 33.1 pg (26.0-34.0); MCHC 33.9 g/dL (31.0-37.0); MCV 97.9 fL (80.0-100.0); MEAN PLATELET VOLUME 10.4 fL (7.4-10.4); MONOCYTES 6.3 % (2-11); NEUTROPHILS 70.7 % (40-80); PLATELET COUNT 145 10x3/uL (130-400); RBC 3.29 10x6/uL (4.00-5.40); WBC 5.6 10x3/uL (4.8-10.8)
[2019-07-15 06:38] LABS: ALBUMIN 3.1 g/dL (3.4-5.0); ALKALINE PHOSPHATASE 97 U/L (46-116); ALT (SGPT) 27 U/L (10-68); CALC OSMOLALITY 286 mosm/kg (275-300); CALCIUM 8.2 mg/dL (8.5-10.1); CHLORIDE - SERUM 108 mmol/L (98-107); CKMB 0.5 U/L (0.0-3.6); CREATINE KINASE 55 UL (21-215); CREATININE - SERUM 1.2 mg/dL (0.6-1.3); GLUCOSE 113 mg/dL (74-106); POTASSIUM - SERUM 3.2 mmol/L (3.5-5.1); PROTEIN - SERUM 5.8 g/dL (6.4-8.2); SODIUM 143 mmol/L (136-145); UREA NITROGEN 15 mg/dL (7-18); eGFR NON AFRICAN AMERICAN 46 mL/min (90-120)
[2019-07-15 06:46] LABS: TROPONIN-I < 0.017 ng/mL (0.000-0.060)
[2019-07-15 08:33] VITALS: BP 153/68
[2019-07-15 12:27] VITALS: BMI 23.2
[2019-07-15 12:28] VITALS: Ht 149.9 cm; Wt 49.7 kg
[2019-07-15 13:34] VITALS: BP 144/73
[2019-07-15 15:39] LABS: % SATURATION 26 % (15-55); IRON 48 ug/dl (35-150); TOTAL IRON BIND CAPACITY 183 ug/dl (260-445); UNSAT IRON BIND CAPACITY 135 ug/dl (150-375)
[2019-07-15 17:51] VITALS: BP 144/72
[2019-07-15 20:00] VITALS: BP 110/67
[2019-07-16 00:39] VITALS: BP 108/62
--- NOTE | 2019-07-16 02:59 | NUR ---
I have reviewed this patient and I concur with the Shift Assessment completed by the Licensed Practical Nurse today this shift.
[2019-07-16 04:00] VITALS: BP 127/55
[2019-07-16 07:25] LABS: BASOPHILS 0.4 % (0-2); EOSINOPHILS 1.6 % (0-7); HEMATOCRIT 33.8 % (36.0-48.0); HEMOGLOBIN 11.1 g/dL (12-16); IMMATURE GRANULOCYTES 0.4 % (0-5); LYMPHOCYTES 22.8 % (15-50); MCH 32.5 pg (26.0-34.0); MCHC 32.8 g/dL (31.0-37.0); MCV 98.8 fL (80.0-100.0); MEAN PLATELET VOLUME 10.3 fL (7.4-10.4); MONOCYTES 5.4 % (2-11); NEUTROPHILS 69.4 % (40-80); PLATELET COUNT 146 10x3/uL (130-400); RBC 3.42 10x6/uL (4.00-5.40); RDW 13.8 % (11.5-14.5)
[2019-07-16 07:45] LABS: ANION GAP 10.8 mmol/L (8-16); CALCIUM 8.5 mg/dL (8.5-10.1); CARBON DIOXIDE 26.5 mmol/L (21.0-32.0); CREATININE - SERUM 1.1 mg/dL (0.6-1.3)
[2019-07-16 07:51] LABS: POTASSIUM - SERUM 4.3 mmol/L (3.5-5.1)
[2019-07-16 07:54] VITALS: BP 130/63
[2019-07-16 11:35] VITALS: BP 170/63
--- NOTE | 2019-07-16 16:43 | MORECARE ---
CASE MANAGEMENT DISCHARGE SUMMARY PATIENT: AMAYA FRANCOIS UNIT: [id number] ADM DATE: 07/15/19 AGE: 73 : 44 SEX: F ROOM/BED: D.2219 AUTHOR: KATHRYN COTTO PHYSICIAN: REFERRING PHYSICIAN: LIZETT MCCRARY MD DATE OF SERVICE: 07/16/19 Discharge Plan Patient Name: AMAYA FRANCOIS Facility: [facility]:[place] : 1945 Planned Disposition: Home Anticipated Discharge Date: Discharge Date: Expected LOS: Initial Reviewer: [email or web address] Initial Review Date: 07/14/2019 Generated: 07/16/19 5:43 pm DCPIA - Discharge Planning Initial Assessment Updated by [email or web address]: Brigid Isaac on 07/16/19 4:37 pm * Is the patient Alert and Oriented? Yes * How many steps to enter\exit or inside your home? 2 STEPS * PCP [facility] * Pharmacy [facility] * Preadmission Environment Home with Family * ADLs Independent * Equipment Rolling Walker * List name and contact numbers for known caregivers / representatives who currently or will assist patient after discharge: ZAYRA HOTEL OR MOTEL ROOM SERVICE SUPERVISOR [phone] * Verbal permission to speak to the caregivers and representatives has been obtained from the patient. Yes * Community resources currently utilized None * Additional services required to return to the preadmission environment? No * Can the patient safely return to the preadmission environment? Yes * Has this patient been hospitalized within the prior 30 days at any hospital? No Coverage Notice Reviewer: [email or web address] Denise Garza Notice Issued Date-Time: 07/14/2019 19:50 Notice Type: Medicare Outpatient Observation Notice Notice Delivered To: Patient Relationship to Patient: Self Experience Specialist Name: Amaya Francois Delivery Method: HAND - Hand Delivered Tracey Days: Prior Verbal Notification: Recipient Understood Notice: Yes Recipient Signature: Yes Med Rec Note Co-signed by Attending: Coverage Notice Comment: SEARS delivered to and signed by patient. Original to patient and to chart. Patient Name: AMAYA FRANCOIS Page [phone] at 1643 All edits/amendments must be made on the electronic document DICTATION DATE: 07/16/191642 ESTIMATION MANAGER: SAMY 07/16/191642 RPT#: [id number] DC DATE: STATUS: ADM IN [facility] [address] [place] [address] END OF REPORT
--- NOTE | 2019-07-16 16:51 | MORECARE ---
CASE MANAGEMENT DISCHARGE SUMMARY PATIENT: AMAYA FRANCOIS UNIT: [id number] ADM DATE: 07/15/19 AGE: 73 : 43 SEX: F ROOM/BED: D.2219 AUTHOR: YADIELDOC PHYSICIAN: REFERRING PHYSICIAN: LIZETT MCCRARY MD DATE OF SERVICE: 07/16/19 Discharge Plan Patient Name: AMAYA FRANCOIS Facility: [facility]:[place] : 1945 Planned Disposition: Home Anticipated Discharge Date: Discharge Date: Expected LOS: Initial Reviewer: [email or web address] Initial Review Date: 07/14/2019 Generated: 07/16/19 5:51 pm Comments DCP- Discharge Planning Updated by [email or web address]: Brigid Isaac on 07/16/19 3:[address] Patient Name: AMAYA FRANCOIS Admission Status: ER Accout number: [id number] Admission Date: 07-15-2019 : 1945 Admission Diagnosis: Attending: LIZETT MCCRARY Current LOS: 1 Anticipated DC Date: Planned Disposition: Home Primary Insurance: MEDICARE A & B Discharge Planning Comments: CM met with patient to complete initial dc planning assessment. CM educated patient on the CM role and verbal consent given by patient to complete assessment. Patient lives at home with her where she is independent with her care. At discharge patient plans to return home and feels this is a safe discharge. CM discussed availability of home health, rehab services, and medical equipment. She has alot of DME from her mother, but uses a walker at time. Patient and spouse voiced multiple falls in the past few months. This past Mon she "passed out and was almost to the floor and had soiled her pj's & she doesn't remember any of it" . She has also stated that she has lost about 10 lbs since April and not trying too. She was very tearful and shared that she lost her mother 2 years ago and has not handled it well. CM will continue to follow and will assist as needed with dc plans/needs. Home Care Manager Rn: Brigid Isaac DCPIA - Discharge Planning Initial Assessment Updated by [email or web address]: Brigid Isaac on 07/16/19 4:37 pm * Is the patient Alert and Oriented? Yes * How many steps to enter\\exit or inside your home? 2 STEPS * PCP [facility] * Pharmacy [facility] * Preadmission Environment Home with Family * ADLs Independent * Equipment Rolling Walker * List name and contact numbers for known caregivers / representatives who currently or will assist patient after discharge: ZAYRA TAVAREZ [phone] * Verbal permission to speak to the caregivers and representatives has been obtained from the patient. Yes * Community resources currently utilized None * Additional services required to return to the preadmission environment? No * Can the patient safely return to the preadmission environment? Yes * Has this patient been hospitalized within the prior 30 days at any hospital? No Coverage Notice Reviewer: [email or web address] Denise Garza Notice Issued Date-Time: 07/14/2019 19:50 Notice Type: Medicare Outpatient Observation Notice Notice Delivered To: Patient Relationship to Patient: Self Funeral Home Manager Name: Amaya Francois Delivery Method: HAND - Hand Delivered Tracey Days: Prior Verbal Notification: Recipient Understood Notice: Yes Recipient Signature: Yes Med Rec Note Co-signed by Attending: Coverage Notice Comment: SEARS delivered to and signed by patient. Original to patient and to chart. Last DP export: 07/16/19 3:43 Patient Name: AMAYA FRANCOIS Page [phone] at 1651 All edits/amendments must be made on the electronic document DICTATION DATE: 07/16/191650 MARKETING INTELLIGENCE ANALYST: SAMY 07/16/191650 RPT#: [id number] DC DATE: STATUS: ADM IN [facility] [address] [place] [address] END OF REPORT
[2019-07-16 16:53] VITALS: BP 152/64
--- NOTE | 2019-07-16 18:09 | NUR ---
PT PROCEDURE WITH DR HERNANDEZ RESCHEDULED, PT IS NOW EATING DINNER, SPOUSE AT BEDSIDE, NO S/S OF DISTRESS CONTINUE WITH PLAN OF CARE
--- NOTE | 2019-07-16 19:52 | NUR ---
OT NOTE: PT DONNED/DOFFED SOCKS AT EOB WITH SBA. THANK YOU, LEANN MORENO
[2019-07-16 20:00] VITALS: BP 118/56
[2019-07-17] VITALS: BP 117/60
--- NOTE | 2019-07-17 02:52 | NUR ---
PT RESTING IN BED. EYES CLOSED. NO SIGNS OF DISTRESS. BREATHING EVEN AND UNLABORED. IV SITE LT AC DRESSING CLEAN DRY AND INTACT. NO SIGNS OF INFECTION. RT SIDE FACE BRUISING PRESENT. BOWEL SOUNDS ACTIVE. LUNG SOUNDS CLEAR. TELE MONITOR ON 64 SINUS. SCDS ON. ZAYNAB ALARM ON. WILL CONTINUE PLAN OF CARE. CALL LIGHT IN REACH. BED LOWERED AND LOCKED.
--- NOTE | 2019-07-17 04:24 | NUR ---
I have reviewed this patient and I concur with the Shift Assessment completed by the Licensed Practical Nurse today this shift.
[2019-07-17 04:30] VITALS: BP 112/62
--- NOTE | 2019-07-17 05:00 | NUR ---
PT IV INFULTRATED. NEW IV SITED. RT FA 20G. ATTEMPTS X1. PT TOLERATED WELL. DRESSING CLEAN DRY AND INTACT. WILL FALLOW UP.
[2019-07-17 06:14] LABS: BASOPHILS 0.9 % (0-2); EOSINOPHILS 2.8 % (0-7); HEMATOCRIT 32.8 % (36.0-48.0); HEMOGLOBIN 10.9 g/dL (12-16); IMMATURE GRANULOCYTES 0.2 % (0-5); MCH 32.9 pg (26.0-34.0); MCHC 33.2 g/dL (31.0-37.0); MCV 99.1 fL (80.0-100.0); MEAN PLATELET VOLUME 10.1 fL (7.4-10.4); MONOCYTES 9.5 % (2-11); NEUTROPHILS 53.6 % (40-80); PLATELET COUNT 153 10x3/uL (130-400); RBC 3.31 10x6/uL (4.00-5.40); RDW 13.6 % (11.5-14.5); WBC 4.6 10x3/uL (4.8-10.8)
[2019-07-17 06:31] LABS: ANION GAP 10.5 mmol/L (8-16); CALCIUM 8.2 mg/dL (8.5-10.1); CARBON DIOXIDE 26.4 mmol/L (21.0-32.0); POTASSIUM - SERUM 3.9 mmol/L (3.5-5.1)
--- NOTE | 2019-07-17 08:00 | NUR ---
ASSESSMENT PER FLOW SHEET. PT IS WITHOUT DISTRESS.MONITOR FOR NEEDS.NPO FOR PROCEDURE TODAY.
[2019-07-17 09:00] VITALS: BP 140/64
--- NOTE | 2019-07-17 11:52 | NUR ---
TO OR VIA BED
[2019-07-17 13:41] VITALS: BP 140/68
--- NOTE | 2019-07-17 13:48 | NUR ---
BACK FROM OR ,AWAKE AND TALKING. PT IS WITHOUT NEEDS.
--- NOTE | 2019-07-17 15:35 | NUR ---
OT NOTE: PT REPORTED NOT FEELING WELL; VERY TEARFUL AND STATED THAT THEY WERE UNABLE TO GET TO KIDNEY STONE. PROVIDED WITH ICE..PT REPORTED NO MORE NEEDS. AT BEDSIDE. WILL ATTEMPT TOMORROW. ERNIE REILLY, OTR/L
[2019-07-17 16:19] VITALS: BP 125/49
--- NOTE | 2019-07-17 18:33 | NUR ---
REMAINS WITHOUT NEEDS,WITHOUT DISTRESS.CONT PLAN OF CARE
[2019-07-17 20:00] VITALS: BP 111/56
--- NOTE | 2019-07-17 22:35 | NUR ---
A/O BUT SLOW TO RESPOND TO QUESTIONS. NO S/S OF ACUTE DISTRESS. IV TO THE RT FOREARM WITH NO REDNESS OR SWELLLING NOTED. ZAYNAB ALARM ON. PT STATES THAT SHE DOSEN'T WANT TO SIGN CONSENTS FOR PROCEDURE TOMMORROW UNTIL SHE TALKS TO MD. DENIES PAIN OR OTHER NEEDS AT THIS TIME. COTNINUE PLAN OF CARE.
[2019-07-18] VITALS (10 sets, daily range): BP systolic 98–145; BP diastolic 47–67
--- NOTE | 2019-07-18 05:08 | NUR ---
PT RESTING IN BED WITH NO SIGNS OF DISTRESS. SKIPPING MM VS TO ALLOW PT REST. WILL CONTINUE TO MONITOR.
[2019-07-18 06:30] LABS: BASOPHILS 0.1 % (0-2); EOSINOPHILS 0 % (0-7); HEMATOCRIT 31.5 % (36.0-48.0); HEMOGLOBIN 10.6 g/dL (12-16); IMMATURE GRANULOCYTES 0.1 % (0-5); LYMPHOCYTES 10.1 % (15-50); MCH 32.7 pg (26.0-34.0); MCHC 33.7 g/dL (31.0-37.0); MCV 97.2 fL (80.0-100.0); MEAN PLATELET VOLUME 10.3 fL (7.4-10.4); NEUTROPHILS 80.7 % (40-80); PLATELET COUNT 166 10x3/uL (130-400); RBC 3.24 10x6/uL (4.00-5.40); RDW 13.3 % (11.5-14.5)
[2019-07-18 06:35] LABS: WBC 7.4 10x3/uL (4.8-10.8)
[2019-07-18 06:36] LABS: CALCIUM 8.5 mg/dL (8.5-10.1); CARBON DIOXIDE 25.1 mmol/L (21.0-32.0); CREATININE - SERUM 1.1 mg/dL (0.6-1.3); POTASSIUM - SERUM 4.1 mmol/L (3.5-5.1)
[2019-07-18 06:38] LABS: APTT 25.8 SECONDS (22.8-39.4); INR 1.1 (0.85-1.17); PROTIME 13.7 SECONDS (11.6-15.0)
--- NOTE | 2019-07-18 07:59 | NUR ---
ALERT AND ORIENTED. LUNGS CLEAR BILTERALLY. HEART SOUNDS S1 AND S2 HEARD IN ALL [place]. BOWEL SOUNDS ACTIVE X 4. FACIAL BRUISING NOTED FROM FALL AT HOME. SKIN INTACT WITHOUT REDNESS. HIBICLEANSE BATH GIVEN FOR POSSIBLE PROCEDURE TODAY. STATES NOT SIGNING CONSENTS UNTIL HAS SPOKEN WITH DOCTOR THIS AM. DENIES FURTHER NEEDS. BED LOW. FALL PRECAUTIONS IN PLACE. CALL WOO AND PERSONAL ITEMS IN REACH. WILL CONTINUE TO MONITOR.
--- NOTE | 2019-07-18 08:09 | OP ---
PATIENT NAME: PAMELA BOOKER MEDICAL RECORD: [id number] :43 LOCATION:D.MS [id number] ADMISSION DATE:07/15/19 SURGEON: RUDI HERNANDEZ MD DATE OF OPERATION: 07/17/2019 SURGEON: Rudi Hernandez MD ANESTHESIA: General anesthesia by Katia Kaur CRNA DIAGNOSIS: A 6 x 8-mm left distal ureteral stone. PROCEDURES: Cystoscopy, left retrograde pyelogram. FINDINGS: Radiodense left distal ureteral stone. Single ureteral orifices bilaterally with no bladder tumors. Unable to get contrast or wire past the stone due to impaction. ESTIMATED BLOOD LOSS: None. CLINICAL HISTORY: This is a 73-year-old female with a previous history of kidney stones. She was recently in the hospital after falling and having suffered some facial fractures. The cause of her syncope is still being worked up. CT scan of the abdomen and pelvis shows a 6 mm 6 x 8-mm stone lodged in the left distal ureter, with proximal hydroureteronephrosis. She comes today to have ureteroscopy and stone extraction attempted. She is not allergic to any medications. She was given Ancef money order clerk to the OR. DESCRIPTION OF PROCEDURE: The patient was given induction of general anesthesia. She was placed in lithotomy position and prepped and draped. Fluoroscopy revealed the radiodensity in the left hemipelvis, which may have been the stone. We then used a 21-Kazakh cystoscope with a 5-Kazakh open-ended ureteral catheter. A retrograde pyelogram was performed by injecting diluted contrast. This showed the radiodensity to be the ureteral stone. However, the contrast would not go proximal to the stone. We tried a variety of wires including a Sensor wire, a straight Glidewire and a curved angle-tip Glidewire. All of these wires were unable to get proximal to the stone. We therefore abandoned further attempts before any injury to the ureter would occur. The bladder was emptied through the cystoscope sheath and the scope was removed. I will make arrangements for interventional radiology to place a left nephrostomy tube and if possible to place a left antegrade ureteral stent tomorrow. She will need treatment with lithotripsy as an outpatient. TRANSINT:[id number] Voice Confirmation ID: [id number] DOCUMENT ID: [id number] RUDI HERNANDEZ MD at 0809 CC: [id number] DICTATION DATE: 07/17/19 1308 HEAT TREATING BLUER: 07/17/19 1448 ADM IN [facility] [address] [id number]
--- NOTE | 2019-07-18 09:38 | NUR ---
CONSENTS SIGNED FOR PROCEDURE. PATIENT TAKEN FOR PROCEDURE.
--- NOTE | 2019-07-18 12:55 | NUR ---
VITALS REMAIN STABLE. EATING LUNCH. WILL CONTINUE TO MONITOR.
--- NOTE | 2019-07-18 14:29 | MORECARE ---
CASE MANAGEMENT DISCHARGE SUMMARY PATIENT: AMAYA FRANCOIS UNIT: [id number] ADM DATE: 07/15/19 AGE: 73 : 43 SEX: F ROOM/BED: D.2219 AUTHOR: YADIELDOC PHYSICIAN: REFERRING PHYSICIAN: LIZETT MCCRARY MD DATE OF SERVICE: 07/18/19 Discharge Plan Patient Name: AMAYA FRANCOIS Facility: [facility]:[place] : 1945 Planned Disposition: Home Anticipated Discharge Date: Discharge Date: Expected LOS: Initial Reviewer: [email or web address] Initial Review Date: 07/14/2019 Generated: 07/18/19 3:29 pm DCP- Discharge Planning Updated by [email or web address]: Brigid Isaac on 07/18/19 1:[address] SPOKE WITH PATIENT AND SISTER ABOUT INPAITENT REHAB, SHE WILL THINK ABOUT IT, BUT DIDN'T REALLY THINK SHE NEEDED IT. CM TO FOLLOW AND ASSIST WITH DC PLANNING DCP- Discharge Planning Updated by [email or web address]: Brigid Isaac on 07/16/19 3:[address] Patient Name: AMAYA FRANCOIS Admission Status: ER Accout number: [id number] Admission Date: 07-15-2019 : 1945 Admission Diagnosis: Attending: LIZETT MCCRARY Current LOS: 1 Anticipated DC Date: Planned Disposition: Home Primary Insurance: MEDICARE A & B Discharge Planning Comments: CM met with patient to complete initial dc planning assessment. CM educated patient on the CM role and verbal consent given by patient to complete assessment. Patient lives at home with her where she is independent with her care. At discharge patient plans to return home and feels this is a safe discharge. CM discussed availability of home health, rehab services, and medical equipment. She has alot of DME from her mother, but uses a walker at time. Patient and spouse voiced multiple falls in the past few months. This past Mon she "passed out and was almost to the floor and had soiled her pj's & she doesn't remember any of it" . She has also stated that she has lost about 10 lbs since April and not trying too. She was very tearful and shared that she lost her mother 2 years ago and has not handled it well. CM will continue to follow and will assist as needed with dc plans/needs. Public Relations Sales Marketing: Brigid Isaac DCPIA - Discharge Planning Initial Assessment Updated by [email or web address]: Brigid Isaac on 07/16/19 4:37 pm * Is the patient Alert and Oriented? Yes * How many steps to enter\\exit or inside your home? 2 STEPS * PCP [facility]MAN * Pharmacy [facility] * Preadmission Environment Home with Family * ADLs Independent * Equipment Rolling Walker * List name and contact numbers for known caregivers / representatives who currently or will assist patient after discharge: ZAYRA BACK PADDER [phone] * Verbal permission to speak to the caregivers and representatives has been obtained from the patient. Yes * Community resources currently utilized None * Additional services required to return to the preadmission environment? No * Can the patient safely return to the preadmission environment? Yes * Has this patient been hospitalized within the prior 30 days at any hospital? No Coverage Notice Reviewer: [email or web address] Denise Garza Notice Issued Date-Time: 07/14/2019 19:50 Notice Type: Medicare Outpatient Observation Notice Notice Delivered To: Patient Relationship to Patient: Self Rental Manager Name: Amaya Francois Delivery Method: HAND - Hand Delivered Tracey Days: Prior Verbal Notification: Recipient Understood Notice: Yes Recipient Signature: Yes Med Rec Note Co-signed by Attending: Coverage Notice Comment: SEARS delivered to and signed by patient. Original to patient and to chart. Last DP export: 07/16/19 3:51 Patient Name: AMAYA FRANCOIS Page [id number] at 1429 All edits/amendments must be made on the electronic document DICTATION DATE: 07/18/191428 CUTTING TORCH OPERATOR: SAMY 07/18/19 142 RPT#: [id number] DC DATE: STATUS: ADM IN [facility] [address] [place] [address] END OF REPORT
--- NOTE | 2019-07-18 14:52 | NUR ---
RESTING IN BED. DENIES NEEDS. VITALS REMAIN STABLE. WILL CONTINUE TO MONITOR.
--- NOTE | 2019-07-18 15:03 | NUR ---
OT NOTE: HOLD SECONDARY TO PT JUST RETURNED FROM PROCEDURE AND DID NOT WANT TO DO THERAPY. WILL ATTEMPT TOMORROW. ERNIE REILLY, OTR/L
--- NOTE | 2019-07-18 18:50 | NUR ---
RESTING IN BED. DENIES NEEDS. BED LOW. FALL PRECAUTIONS IN PLACE. CALL WOO AND PERSONAL ITEMS IN REACH.
--- NOTE | 2019-07-18 20:00 | NUR ---
LYING IN BED. DROWSY. ORIENTED X4. RATES PAIN IN BACK 2. LT NEPHROSTOMY NOTED WITH BLOODY DRAINAGE IN TUBING. BRUISES NOTED TO RT EYE, RT SIDE OF FACE, BUE, BLE AND CHIN. TELEMETRY SHOWS SB WITH RATE OF 57. SALINE LOCK NOTED TO RT FOREARM. RESP SHALLOW, NONLABORED. ZAYNAB ALARM ON FOR PT SAFETY. CL IN REACH.
[2019-07-19 01:02] VITALS: BP 114/54
--- NOTE | 2019-07-19 01:10 | NUR ---
VOMITED 100 ML OF UNDIGESTED FOOD. MEDICATED WITH ZOFRAN FOR NAUSEA. CL IN REACH.
[2019-07-19 05:08] VITALS: BP 110/47
[2019-07-19 07:26] LABS: ANION GAP 10.2 mmol/L (8-16); CALCIUM 8.5 mg/dL (8.5-10.1); CARBON DIOXIDE 27.7 mmol/L (21.0-32.0); CREATININE - SERUM 1.2 mg/dL (0.6-1.3); POTASSIUM - SERUM 3.9 mmol/L (3.5-5.1)
--- NOTE | 2019-07-19 07:29 | NUR ---
ALERT AND ORIENTED. LUNGS CLEAR BILATERALLY. HEART SOUNDS S1 AND S2 HEARD IN ALL [place]. BOWEL SOUNDS ACTIVE X 4. LEFT NEPHROSTOMY TUBE PATENT WITH SEROSANGUENOUS DRAINAGE. FACIAL BRUISING NOTED FROM PREVIOUS FALL. SKIN OTHERWISE INTACT WITHOUT REDNESS. IV TO RFA PATENT WITHOUT REDNESS. DENIES PAIN. DENIES NEEDS. BED LOW. FALL PRECAUTIONS IN PLACE. CALL WOO AND PERSONAL ITEMS IN REACH. WILL CONTINUE TO MONITOR.
[2019-07-19 07:38] LABS: HEMOGLOBIN 10.4 g/dL (12-16); LYMPHOCYTES 22.6 % (15-50); MCH 34.3 pg (26.0-34.0); MCHC 34.7 g/dL (31.0-37.0); NEUTROPHILS 59.4 % (40-80); RBC 3.03 10x6/uL (4.00-5.40); RDW 14.2 % (11.5-14.5)
[2019-07-19 07:39] LABS: PLATELET COUNT 109 10x3/uL (130-400); WBC 5.1 10x3/uL (4.8-10.8)
[2019-07-19 07:59] VITALS: BP 126/50
[2019-07-19 11:35] VITALS: BP 141/66
--- NOTE | 2019-07-19 12:21 | NUR ---
RESTING IN BED. DENIES NEEDS. WILL CONTINUE TO MONITOR.
--- NOTE | 2019-07-19 16:35 | NUR ---
RESTING IN BED. DENIES NEEDS. WILL CONTINUE TO MONITOR.
[2019-07-19 17:22] VITALS: BP 136/52
--- NOTE | 2019-07-19 18:35 | NUR ---
RESTING IN BED. FAMILY AT BEDSIDE. BED LOW. FALL PRECAUTIONS IN PLACE. CALL WOO AND PERSONAL ITEMS IN REACH.
--- NOTE | 2019-07-19 19:15 | NUR ---
BEDSIDE REPORT RECEIVED FROM JORGITO US. FAMILY MEMBER AT BEDSIDE. JORGITO US DRAINED LEFT SIDED NEPHROSTOMY BAG. RECEIVED 190-WILL ADD TO THIS NURSES I&O FOR MANAGEMENT AND BUDGET ANALYST. PATIENT DRAINAGE LIGHT RED. PATIENT AMBULATES TO BATHROOM WITH ASSISTANCE. ZAYNAB ALWARM AND YELLOW GOWN ON. PATIENT DENIES PAIN AT THIS TIME. STATES "IT ONLY HURTS A LITTLE WHEN I WALK." DENIES FURTHER NEEDS AT THIS TIME. NO SCD'S. RECEIVES LOVENOX FOR DVT PROPHYLAXIS. PROVIDED WITH WARM BLANKEY PER REQUEST. CALL LIGHT IN REACH. FAMILY MEMBER REMAINS AT BEDSIDE AND WILL BE STAYING THE NIGHT. CPOC.
--- NOTE | 2019-07-19 19:55 | NUR ---
PHYSICAL ASSESSMENT COMPLETED.
[2019-07-19 20:00] VITALS: BP 121/50
[2019-07-20] VITALS: BP 127/56
--- NOTE | 2019-07-20 03:50 | NUR ---
I have reviewed this patient and I concur with the Shift Assessment completed by the Licensed Practical Nurse today this shift.
[2019-07-20 04:00] VITALS: BP 131/57
[2019-07-20 06:16] LABS: BASOPHILS 0.3 % (0-2); EOSINOPHILS 2.1 % (0-7); HEMATOCRIT 31.9 % (36.0-48.0); HEMOGLOBIN 10.5 g/dL (12-16); IMMATURE GRANULOCYTES 0.3 % (0-5); LYMPHOCYTES 18.7 % (15-50); MCH 32.8 pg (26.0-34.0); MCHC 32.9 g/dL (31.0-37.0); MCV 99.7 fL (80.0-100.0); MEAN PLATELET VOLUME 10.7 fL (7.4-10.4); MONOCYTES 13.5 % (2-11); NEUTROPHILS 65.1 % (40-80); RDW 13.9 % (11.5-14.5)
[2019-07-20 06:25] LABS: PLATELET COUNT 136 10x3/uL (130-400); WBC 7.2 10x3/uL (4.8-10.8)
[2019-07-20 06:52] LABS: ALBUMIN 2.7 g/dL (3.4-5.0); ANION GAP 11.3 mmol/L (8-16); BILIRUBIN - TOTAL 0.65 mg/dL (0.2-1.3); CALCIUM 8.1 mg/dL (8.5-10.1); CARBON DIOXIDE 27.5 mmol/L (21.0-32.0); POTASSIUM - SERUM 3.8 mmol/L (3.5-5.1); PROTEIN - SERUM 5.2 g/dL (6.4-8.2)
[2019-07-20 08:19] VITALS: BP 134/57
--- NOTE | 2019-07-20 11:15 | NUR ---
PATIENT NEPHROTUBE CLAMPED AND FLUSHED BY PHYSICIAN. PATIENT HAS NO COMPLAINTS OR SIGNS OF DISTRESS. FAMILY AT BEDSIDE. CALL LIGHT WITHIN REACH.
[2019-07-20 14:29] VITALS: BP 106/71
[2019-07-20 16:26] VITALS: BP 117/50
--- NOTE | 2019-07-20 18:45 | NUR ---
PATIENT IN BED WITH IV INTACT. NO COMPLAINTS OR SIGNS OF DISTRESS. NO PROBLEMS TODAY WITH NEPHROTUBE BEING CLAMPED. VOIDING WITH NO PROBLEMS. NO PAIN TO BACK. BED ALARM ON. CALL LIGHT WITHIN REACH.
--- NOTE | 2019-07-20 19:00 | NUR ---
BEDSIDE REPORT RECEIVED AND CARE OF PT ASSUMED. PT LYING IN SUPINE POSITION VISITING WITH SPOUSE. IV TO RIGHT FA SALINE LOCKED. TELEMETRY IN PLACE AND READING 63 SR AT THIS ASSESSMENT. ZAYNAB ALARM IN USE FOR SAFETY.
[2019-07-20 20:00] VITALS: BP 130/67
--- NOTE | 2019-07-20 21:13 | NUR ---
HS MEDICATIONS GIVEN. WILL CONTINUE TO MONITOR FOR NEEDS.
[2019-07-21] VITALS: BP 144/63
[2019-07-21 04:00] VITALS: BP 162/67
[2019-07-21 06:26] LABS: BASOPHILS 0.2 % (0-2); EOSINOPHILS 2.7 % (0-7); HEMATOCRIT 32.1 % (36.0-48.0); HEMOGLOBIN 10.6 g/dL (12-16); IMMATURE GRANULOCYTES 0.2 % (0-5); LYMPHOCYTES 26.7 % (15-50); MCH 32.7 pg (26.0-34.0); MCV 99.1 fL (80.0-100.0); MEAN PLATELET VOLUME 10.7 fL (7.4-10.4); MONOCYTES 10.9 % (2-11); NEUTROPHILS 59.3 % (40-80); PLATELET COUNT 157 10x3/uL (130-400); RBC 3.24 10x6/uL (4.00-5.40); WBC 5.9 10x3/uL (4.8-10.8)
[2019-07-21 06:43] LABS: ALBUMIN 2.8 g/dL (3.4-5.0); ANION GAP 8.4 mmol/L (8-16); BILIRUBIN - TOTAL 0.64 mg/dL (0.2-1.3); CALCIUM 8.5 mg/dL (8.5-10.1); CARBON DIOXIDE 29.2 mmol/L (21.0-32.0); CREATININE - SERUM 0.9 mg/dL (0.6-1.3); POTASSIUM - SERUM 3.6 mmol/L (3.5-5.1); PROTEIN - SERUM 5.5 g/dL (6.4-8.2)
--- NOTE | 2019-07-21 08:00 | NUR ---
PATIENT IN BED WITH IV INTACT. NO COMPLAINTS OR SIGNS OF DISTRESS. IV INTACT. NEPHROSTOMY TUBE IN PLACE AND CLAMPED. NO PROBLEMS VOIDING. NO PAIN TO BACK. FAMILY AT BEDSIDE. CALL LIGHT WITHIN REACH.
[2019-07-21 08:45] VITALS: BP 135/54
--- NOTE | 2019-07-21 10:30 | NUR ---
PATIENT IN BED WITH IV INTACT. NO COMPLAINTS OR SIGNS OF DISTRESS. NEPHRO TUBE INTACT AND CLAMPED. FAMILY AT BEDSIDE. CALL LIGHT WITHIN REACH.
[2019-07-21 12:00] VITALS: BP 167/54
--- NOTE | 2019-07-21 12:45 | NUR ---
PATIENT SITTING UP IN BED EATING AT THIS TIME.
--- NOTE | 2019-07-21 14:00 | NUR ---
PATIENT NEPHRO TUBE FLUSHED WITH 10 ML NS ORDERED Q 8. FLUSHED WITH NO RESISTANCE. STILL CLAMPED WITH NO PROBLEMS. CALL LIGHT WITHIN REACH. FAMILY AT BEDSIDE.
--- NOTE | 2019-07-21 15:54 | NUR ---
PATIENT UP TO SHOWER. ASSISTED BY FAMILY.
--- NOTE | 2019-07-21 19:15 | NUR ---
PATIENT ALERT AND ORIENTED WHEN ENTERING THE ROOM. ASSISTED PATIENT TO BATHROOM. VOIDS WITH NO ISSUES BUT HAS RED URINE. LEFT SIDED NEPHROSOTOMY BAG THAT IS TO THE LEFT LOWER BACK. QUARTER SIZED DRIED BLOOD TO INCISION. LUIS BAG HAS NO DRAINAGE. CURRENTLY CLAMPED PER ORDER. PATIENT DENIES PAIN OR DISCOMFORT AT THIS TIME. PATIENT AMBULATES CAUTIOUSLY AND WINCES IN PAIN BUT DENIES THIS NURSES QUESTIONS ABOUT PAIN MEDICATION. FACIAL BRUISING FROM PREVIOUS FALL. BILATERAL ARM BRUISING. RIGHT FOREARM IV THAT IS SALINE LOCEKD AT THIS TIME. PATIENT HAS HAD CHG BATH EARLIER IN AFTERNOON. DENIES FURTHER NEEDS AT THIS TIME. CALL LIGHT IN REACH. CPOC.
[2019-07-21 20:00] VITALS: BP 119/50
--- NOTE | 2019-07-21 23:43 | NUR ---
ASSISTED PATIENT TO BATHROOM.
[2019-07-22] VITALS: BP 142/60
[2019-07-22 04:00] VITALS: BP 130/56
[2019-07-22 04:53] LABS: BASOPHILS 0.3 % (0-2); EOSINOPHILS 2.9 % (0-7); HEMATOCRIT 32.2 % (36.0-48.0); HEMOGLOBIN 10.8 g/dL (12-16); IMMATURE GRANULOCYTES 0.2 % (0-5); LYMPHOCYTES 27.5 % (15-50); MCH 33.2 pg (26.0-34.0); MCHC 33.5 g/dL (31.0-37.0); MCV 99.1 fL (80.0-100.0); MEAN PLATELET VOLUME 10.6 fL (7.4-10.4); MONOCYTES 3.8 % (2-11); NEUTROPHILS 65.3 % (40-80); PLATELET COUNT 177 10x3/uL (130-400); RBC 3.25 10x6/uL (4.00-5.40); WBC 6.1 10x3/uL (4.8-10.8)
[2019-07-22 05:12] LABS: ALBUMIN 2.7 g/dL (3.4-5.0); ANION GAP 7.9 mmol/L (8-16); BILIRUBIN - TOTAL 0.42 mg/dL (0.2-1.3); CALCIUM 8.4 mg/dL (8.5-10.1); CARBON DIOXIDE 29.5 mmol/L (21.0-32.0); POTASSIUM - SERUM 3.4 mmol/L (3.5-5.1); PROTEIN - SERUM 5.3 g/dL (6.4-8.2)
--- NOTE | 2019-07-22 05:20 | NUR ---
ASSISTED PATIENT TO BATHROOM. PATIENT COMPLAINING OF BACK PAIN. PATIENT AMBULATING FROM BATHROOM TO BED AND OBVIOUS SIGNS OF PAIN BY WINCING AND GUARDING TOWARDS BACK. LAST ORDER WAS PLACED BY DR. DOUGLAS INSTRUCTING TO CALL WITH ANY QUESTIONS OR ISSUES PERTAINING DRAIN PLACEMENT. PAGED DR. DOUGLAS. IMMEDIATE RETURN CALL. INFORMED OF BACK PAIN AND THAT NEPHROSTOMY TUBE HAS BEEN CLAMPED THROUGH OUT NIGHT AND PRIOR SHIFTS. DR. DOUGLAS STATED TO UNCLAMP DRAIN FOR FIVE MINUTES AND RECORD OUTPUT AND IF PATIENT VERBALIZES ANY PAIN RELIEF. UNCLAMPED FOR FIVE MINUTES PER ORDER AND RECEIVED 25 CC OF BLOODY DRAINAGE. PATIENT STATES "IT DOESN'T FEEL LIKE SO MUCH PRESSURE ON MY BACK." PATIENT RESTING WATCHING TV WHEN EXITING THE ROOM. RECLAMPED DRAIN.
--- NOTE | 2019-07-22 05:46 | NUR ---
POTASSIUM 3.4. TREATED PER PROTOCAL.
[2019-07-22 08:03] VITALS: BP 146/52
--- NOTE | 2019-07-22 08:09 | NUR ---
ASSESSMENT PER FLOW SHEET. PT IS WITHOUT DISTRESS.LEFT UNIT VIA BED FOR PROCEDURE IN IR.FAMILY AT SIDE.
[2019-07-22] MEDS ORDERED: PROTONIX40 MG PO (12:30)
[2019-07-22] MEDS ORDERED: AUGMENTIN 875-11 TAB PO (12:30)
[2019-07-22] MEDS ORDERED: DONEPEZIL HCL5 MG PO (12:31)
[2019-07-22] MEDS ORDERED: LEXAPRO10 MG PO (12:31)
[2019-07-22 12:49] VITALS: BP 127/45
--- NOTE | 2019-07-22 13:52 | NUR ---
DISCHARGE INSTRUCTIONS,STATES UNDERSTANDING. IV DCD WITH CATH TIP INTACT
--- NOTE | 2019-07-22 15:25 | NUR ---
OT NOTE: PT EXCITED TO BE GOING HOME. PT COMPLETED BED MOB WITH SBA . PT COMPLETED SUPINE TO SIT WITH SBA. PT COMPLETED SIT TO STAND WITH SBA. PT COMPLETED ADL MOB WITH SBA. PT COMPLETED TOILETING AND HYGIENE TASKS WITH SBA. THANK YOU, LEANN MORENO
--- NOTE | 2019-07-22 17:02 | EC ---
PATIENT:PAMELA BOOKER DATE OF SERVICE: 07/15/19 SEX: F MEDICAL RECORD: [id number] DATE OF : [birth year] LOCATION:D.MS Seay221 AGE OF PATIENT: 73 ADMISSION DATE: 07/15/19 REFERRING PHYSICIAN: INTERPRETING PHYSICIAN: BHARTI ZENG MD ECHOCARDIOGRAM REPORT ECHO CHARGES 4 ECHO COMPLETE Date: 07/15/19 CLINICAL DIAGNOSIS: SYNCOPE ECHOCARDIOGRAPHIC MEASUREMENTS (adult normal given) AC root (d.<3.7cm) 2.9 cm LV Septum d (<1.2 cm> 1.4 cm Valve Excursion 1.2 cm LV Septum (systole) 1.8 cm Left Atria (s.<4.0cm> 3.1 cm LVPW d(<1.2cm) 1.2 cm RV (d.<2.3cm) 2.4 cm LVPW (sytole) 2.2 cm LV diastole(<5.6CM) 4.3 cm MV E-F(>70mm/sec) cm LV systole 2.6 cm LVOT Diameter 1.8 cm MV exc.(>10mm) cm Est.ejection fraction (50-75%) % DOPPLER: LVIT cm/sec A 51.0 cm/sec E 39.0 cm/sec LA cm/sec RVSP 30.0 mmHg LVOT 89.0 cm/sec AOP1/2T m/s Asc. Ao 200 cm/sec RVOT 47.0 cm/sec RA cm/sec PA 75.0 cm/sec AV Gradient Peak 16.0 mmHg AV Mean 9.3 mmHg AV Area 1.1 cm MV Gradient Peak 3.4 mmHg MV Mean 1.4 mmHg MV Area cm COMMENTS: Band Cutter: 1 ROBERTO MALONEOE Aerobics Instructor: 1 Dr. Zeng TAPE# PACS Pericardial Effusion N DATE OF SERVICE: 07/15/2019 ECHOCARDIOGRAM FINDINGS: 1. Left ventricular chamber size is within normal limits. Left ventricular systolic function is normal. Overall ejection fraction estimated at 55%. 2. Left atrium, right atrium, and right ventricle chamber sizes are within normal limits. 3. Valvular structures: Aortic valve demonstrates mild calcific aortic ECHOCARDIOGRAM REPORT [id number] PAMELA BOOKER stenosis, valve area calculates to 1.1 cm-squared with a gradient of 16 mm across the valve. The remaining valvular structures have normal structure and motion. 4. Doppler interrogation elsewise reveals moderate aortic insufficiency, mild mitral regurgitation, trace tricuspid regurgitation, no other valvular insufficiency or stenosis. Pulmonary systolic pressure is normal estimated at 30 mmHg. 5. No evidence of pericardial effusion or left ventricular thrombus. TRANSINT:[id number] Voice Confirmation ID: [id number] DOCUMENT ID: [id number] BHARTI ZENG MD at 1702 CC: [id number] DICTATION DATE: 07/15/191653 MOTOR VEHICLE ASSEMBLY SUPERVISOR: 07/15/19 175 DIS IN 07/22/19 [facility] [address] [place] [address]
--- NOTE | 2019-07-27 15:53 | MORECARE ---
CASE MANAGEMENT DISCHARGE SUMMARY PATIENT: AMAYA FRANCOIS UNIT: [id number] ADM DATE: 07/15/19 AGE: 73 : 43 SEX: F ROOM/BED: D.2219 AUTHOR: KATHRYN COTTO PHYSICIAN: REFERRING PHYSICIAN: LIZETT MCCRARY MD DATE OF SERVICE: 07/27/19 Discharge Plan Patient Name: AMAYA FRANCOIS Facility: [facility]:[place] : 1945 Planned Disposition: Home Anticipated Discharge Date: 07/22/19 Discharge Date: 07/22/2019 Expected LOS: 7 Initial Reviewer: [email or web address] Initial Review Date: 07/14/2019 Generated: 07/27/19 4:52 pm DCP- Discharge Planning Updated by [email or web address]: Brigid Isaac on 07/18/19 1:[address] SPOKE WITH PATIENT AND SISTER ABOUT INPAITENT REHAB, SHE WILL THINK ABOUT IT, BUT DIDN'T REALLY THINK SHE NEEDED IT. CM TO FOLLOW AND ASSIST WITH DC PLANNING DCP- Discharge Planning Updated by [email or web address]: Brigid Isaac on 07/16/19 3:[address] Patient Name: AMAYA FRANCOIS Admission Status: ER Accout number: [id number] Admission Date: 07-15-2019 : 1945 Admission Diagnosis: Attending: LIZETT MCCRARY Current LOS: 1 Anticipated DC Date: Planned Disposition: Home Primary Insurance: MEDICARE A & B Discharge Planning Comments: CM met with patient to complete initial dc planning assessment. CM educated patient on the CM role and verbal consent given by patient to complete assessment. Patient lives at home with her where she is independent with her care. At discharge patient plans to return home and feels this is a safe discharge. CM discussed availability of home health, rehab services, and medical equipment. She has alot of DME from her mother, but uses a walker at time. Patient and spouse voiced multiple falls in the past few months. This past Mon she "passed out and was almost to the floor and had soiled her pj's & she doesn't remember any of it" . She has also stated that she has lost about 10 lbs since April and not trying too. She was very tearful and shared that she lost her mother 2 years ago and has not handled it well. CM will continue to follow and will assist as needed with dc plans/needs. Motor Builder Winder: Brigid Isaac DCPIA - Discharge Planning Initial Assessment Updated by [email or web address]: Brigid Isaac on 07/16/19 4:37 pm * Is the patient Alert and Oriented? Yes * How many steps to enter\\exit or inside your home? 2 STEPS * PCP [facility]MAN * Pharmacy [facility] * Preadmission Environment Home with Family * ADLs Independent * Equipment Rolling Walker * List name and contact numbers for known caregivers / representatives who currently or will assist patient after discharge: ZAYRA COMPOUNDING SCALER [phone] * Verbal permission to speak to the caregivers and representatives has been obtained from the patient. Yes * Community resources currently utilized None * Additional services required to return to the preadmission environment? No * Can the patient safely return to the preadmission environment? Yes * Has this patient been hospitalized within the prior 30 days at any hospital? No Coverage Notice Reviewer: [email or web address] - Malgorzata Garza Notice Issued Date-Time: 07/14/2019 19:50 Notice Type: Medicare Outpatient Observation Notice Notice Delivered To: Patient Relationship to Patient: Self Bond Trader Name: Amaya Francois Delivery Method: HAND - Hand Delivered Tracey Days: Prior Verbal Notification: Recipient Understood Notice: Yes Recipient Signature: Yes Med Rec Note Co-signed by Attending: Coverage Notice Comment: SEARS delivered to and signed by patient. Original to patient and to chart. Reviewer: [email or web address] - Brigid Isaac Notice Issued Date-Time: 07/22/2019 13:35 Notice Type: IM Discharge Notice Notice Delivered To: Patient Relationship to Patient: Bond Trader Name: Delivery Method: HAND - Hand Delivered Tracey Days: Prior Verbal Notification: Recipient Understood Notice: Yes Recipient Signature: Yes Med Rec Note Co-signed by Attending: Coverage Notice Comment: Last DP export: 07/18/19 1:29 Patient Name: AMAYA FRANCOIS Page [id number] at 1553 All edits/amendments must be made on the electronic document DICTATION DATE: 07/27/191551 RENTAL AGENT: SAMY 07/27/191551 RPT#: [id number] DC DATE:07/22/19 STATUS: DIS IN [facility] [address] [place] [address] END OF REPORT
== END 2019-07-22 13:53 | disposition home or self-care (01) | DRG 694 ==
LOC: D.ER 17:32 → D.MS 19:08 → OBSVTIME 19:08 → D.MS 19:08
PROVIDERS: Family Medicine; General Practice; Urology; ADMIT Internal Medicine Nephrology; ATTEND Internal Medicine Nephrology
PROC: 0TJ98ZZ Inspection of Ureter, Via Natural or Artificial Opening Endoscopic (ICD-10-PCS; 2019-07-17 12:00)
PROC: 0T773DZ Dilation of Left Ureter with Intraluminal Device, Percutaneous Approach (ICD-10-PCS; 2019-07-18)
PROC: 0T9130Z Drainage of Left Kidney with Drainage Device, Percutaneous Approach (ICD-10-PCS; principal; 2019-07-18 09:30)
PROC: 0TP5X0Z Removal of Drainage Device from Kidney, External Approach (ICD-10-PCS; 2019-07-22)
DX: N13.2 Hydronephrosis with renal and ureteral calculous obstruction (principal); S22.31XA Fracture of one rib, right side, initial encounter for closed fracture; S02.40CA Maxillary fracture, right side, initial encounter for closed fracture; R04.89 Hemorrhage from other sites in respiratory passages; R55 Syncope and collapse; W19.XXXA Unspecified fall, initial encounter; Y92.009 Unspecified place in unspecified non-institutional (private) residence as the place of occurrence of the external cause; D35.02 Benign neoplasm of left adrenal gland; D64.9 Anemia, unspecified; E87.6 Hypokalemia; I25.10 Atherosclerotic heart disease of native coronary artery without angina pectoris; I10 Essential (primary) hypertension; M19.90 Unspecified osteoarthritis, unspecified site; N17.9 Acute kidney failure, unspecified

== ENCOUNTER 2019-08-08 09:24 | Day surgery (SDC) | payer MEDICARE, BC ==
[~2019-08-08] VITALS: Ht 157.5 cm; Wt 49.9 kg
[~2019-08-08 09:24] MED LIST changes: +AUGMENTIN 875-11 TAB PO; +DONEPEZIL HCL5 MG PO; +LEXAPRO10 MG PO; +PROTONIX40 MG PO
[2019-08-08 09:57] LABS: HEMATOCRIT 33.4 % (36.0-48.0); HEMOGLOBIN 11.3 g/dL (12-16); MCH 32.9 pg (26.0-34.0); MCHC 33.8 g/dL (31.0-37.0); MCV 97.4 fL (80.0-100.0); MEAN PLATELET VOLUME 9.4 fL (7.4-10.4); RBC 3.43 10x6/uL (4.00-5.40); RDW 13.6 % (11.5-14.5); WBC 5.5 10x3/uL (4.8-10.8)
[2019-08-08 10:22] VITALS: BP 156/64; Ht 157.5 cm; Wt 49.9 kg
--- NOTE | 2019-08-08 16:23 | OP ---
PATIENT NAME: PAMELA BOOKER MEDICAL RECORD: [id number] :43 LOCATION:DANA ADMISSION DATE: SURGEON: RIAZ HERNANDEZ MD DATE OF OPERATION: 08/08/2019 SURGEON: Riaz Hernandez MD ANESTHESIA: General anesthesia by Vipul Johnson CRNA DIAGNOSIS: Left distal ureteral 6 x 8 mm stone. PROCEDURE: Left ESWL times 4000 shocks. BLOOD LOSS: None. FINDINGS: Radiodense distal ureteral stone. CLINICAL HISTORY: This is a 73-year-old female with left flank pain. She was found to have a distal ureteral stone 6 x [address] in size on CT scan. She had a left ureteral stent inserted. She comes now to have the stone treated with lithotripsy. She is not allergic to any medications. She was given Ancef liquefaction plant operator to the OR. DESCRIPTION OF PROCEDURE: The patient was given induction of general anesthesia after the stone was visualized on fluoroscopy. The stone was targeted in 2 planes. A 4000 shocks were given in order to fully break up the stone. I will see her back in followup in 3 weeks' time with a KUB. TRANSINT:[id number] Voice Confirmation ID: [id number] DOCUMENT ID: [id number] RIAZ HERNANDEZ MD at 1623 CC: [id number] DICTATION DATE: 08/08/19 1339 BLOCK SETTER GYPSUM: 08/08/[address] [facility] 08/08/[id number] [place] [address]
== END 2019-08-08 15:53 | disposition home or self-care (01) ==
LOC: D.OPS 09:24 → D.PAN 12:40 → D.OPS 12:40 → D.PAN 12:45 → D.OPS 12:45 → D.PAN 13:00 → D.OPS 15:53
PROVIDERS: Anesthesiology; ATTEND Urology
DX: N20.1 Calculus of ureter (principal); I10 Essential (primary) hypertension

== ENCOUNTER → 2019-08-30 10:22 | Outpatient (CLI) | payer MEDICARE, BC ==
[2019-08-08 10:22] VITALS: BMI 20.1
[~2019-08-30 10:22] MED LIST changes: +FLOMAX0.4 MG PO
== END | disposition home or self-care (01) ==
LOC: D.RAD 10:00
PROVIDERS: ATTEND Urology
DX: Z09 Encounter for follow-up examination after completed treatment for conditions other than malignant neoplasm (principal)

== ENCOUNTER 2019-09-03 05:22 | Day surgery (SDC) | payer MEDICARE, BC ==
[~2019-09-03] VITALS: Ht 208.3 cm; Wt 47.2 kg
[2019-09-03 05:48] LABS: HEMATOCRIT 33.1 % (36.0-48.0); MCH 32.8 pg (26.0-34.0); MCHC 33.2 g/dL (31.0-37.0); MCV 98.8 fL (80.0-100.0); MEAN PLATELET VOLUME 10.2 fL (7.4-10.4); RBC 3.35 10x6/uL (4.00-5.40); RDW 14.7 % (11.5-14.5); WBC 5.3 10x3/uL (4.8-10.8)
[2019-09-03 07:22] VITALS: BP 140/71; Ht 208.3 cm; Wt 47.2 kg
--- NOTE | 2019-09-03 07:43 | NUR ---
0730 PT CRYING WITH BURNING TO RIGHT ARM FROM POTASSIUM RIDER INFUSION @ 100ML/HR PER ALRUS PUMP. LUPE MOJICA HERE POTASSIUM RATE REDUCED TO 25ML/HR PER ALARUS PUMP. Jason PALMA R.N.
--- NOTE | 2019-09-03 08:28 | NUR ---
0800 VOIDED SMALL AMOUNT TEA COLORED URINE IN BEDPAN. POTASSIUM RIDER INFUSION CONTINUES @ 25ML/HR PER ALARUS PUMP. Jason PALMA R.N.
--- NOTE | 2019-09-03 08:43 | NUR ---
0835 VOIDED A SMALL AMOUNT OF URINE PER BEDPAN. Jason PALMA R.N.
--- NOTE | 2019-09-03 10:40 | NUR ---
1015 VOIDED URINE PER BEDPAN. Jason PALMA R.N. 1035 POTASSIUM INFUSION COMPLETED. LR INFUSING @ 15ML/HR PER ALARUS PUMP. Jason PALMA R.N.
--- NOTE | 2019-09-03 12:54 | OP ---
PATIENT NAME: PAMELA BOOKER MEDICAL RECORD: [id number] :43 LOCATION:D.OPS ADMISSION DATE: SURGEON: RIAZ HERNANDEZ MD DATE OF OPERATION: 09/03/2019 SURGEON: Riaz Hernandez MD SHIRRING TENDER: GENI by Kelby Banks CRNA DIAGNOSIS: Retained left ureteral stent. PROCEDURES: Cystoscopy and left ureteral stent removal. FINDINGS: No bladder tumors, single ureteral orifices bilaterally. SPECIMENS: Left ureteral stent. ESTIMATED BLOOD LOSS: None. CLINICAL HISTORY: This is a 74-year-old female who had a left distal ureteral stone 6 x 8 mm. I could not get a guidewire to go past the stone and therefore interventional radiology had to place a stent from an antegrade approach. She then had left ESWL on 08/08/2019. Her latest KUB shows some small stones specks adjacent to the stent. She comes now to have the stent removed via cystoscopy. She is not allergic to any medications. She was given ampicillin and sulbactam marine operations coordinator to the OR. DESCRIPTION OF PROCEDURE: The patient was given IV sedation. She was then placed in the lithotomy position and prepped and draped. A 21-Kuwaiti cystoscope with 30-degree lens was used for visualization. The stent was seen. Grasping forceps were placed and the stent was removed entirely. The patient was then awakened and brought to recovery room. TRANSINT:[id number] Voice Confirmation ID: [id number] DOCUMENT ID: [id number] RIAZ HERNANDEZ MD at 1254 CC: [id number] DICTATION DATE: 09/03/19 0931 CONTACT CENTER AGENT: 09/03/19 1132 [facility] [address] [place] [address]
--- NOTE | 2019-09-03 12:55 | NUR ---
1120 UP TO BATHROOM VOIDED URINE WITH SMALL AMOUNT OF BLODD NOTED. IV DC'ED WITH CATH INTACT & 400ML LR LTC. DRESSING WITH 'S ASSISTANCE. Jason PALMA R.N. [address] HERNANDEZ THAT HE DID NOT NEED TO MAKE ROUNDS WITH PT. PT DRESSED. AWAKE & ALERT. GIVEN DISCHARGE INFORMATION INCLUDING: MED REC, POST CYSTOSCOPY D/C INSTRUCTIONS & [facility] D/C INSTRUCTIONS. PT VOICED UNDERSTANDING. TO PRIVATE CAR PER W/C BY THIS NURSE. HOME WITH SPOUSE, ZAYRA BOOKER. Jason PALMA R.N.
== END 2019-09-03 11:35 | disposition home or self-care (01) ==
LOC: D.OPS 05:22 → D.PAN 08:15 → D.OPS 11:35
PROVIDERS: Anesthesiology; ATTEND Urology
DX: T83.89XA Other specified complication of genitourinary prosthetic devices, implants and grafts, initial encounter (principal); I10 Essential (primary) hypertension; I25.10 Atherosclerotic heart disease of native coronary artery without angina pectoris; A69.20 Lyme disease, unspecified; Z87.442 Personal history of urinary calculi; N28.9 Disorder of kidney and ureter, unspecified